=== PATIENT | female | born 1930 | race Caucasian/White ===

== ENCOUNTER 2016-09-03 13:41 | Emergency (ER) | payer MEDICARE ==
[2016-09-03 14:52] LABS: BASO # 0.1 x10^3/uL (0.0-0.2); BASO % 0 % (0-3); EOS % 1 % (0-3); HEMATOCRIT 39.3 % (36.0-47.0); HEMOGLOBIN 12.4 g/dL (12.0-15.5); LYMPH # 0.8 x10^3/uL (1.0-4.8); LYMPH % 6 % (24-48); MEAN CORPUSCULAR HEMOGLOBIN 32 pg (25-35); MEAN CORPUSCULAR HGB CONC 32 g/dL (31-37); MEAN CORPUSCULAR VOLUME 101 fL (79-100); MONO % 7 % (0-9); NEUT % 85 % (31-73); PLATELET COUNT 216 x10^3/uL (140-400); RED BLOOD COUNT 3.89 x10^6/uL (3.50-5.40); RED CELL DISTRIBUTION WIDTH 21.8 % (11.5-14.5); WHITE BLOOD COUNT 13.7 x10^3/uL (4.0-11.0)
[2016-09-03 14:56] LABS: BILIRUBIN,URINE NEGATIVE (NEG); GLUCOSE,URINE NEGATIVE (NEG); NITRITE,URINE NEGATIVE (NEG); UROBILINOGEN,URINE 0.2 mg/dL (0.2 mg/dL)
[2016-09-03 15:00] LABS: CALCIUM 8.9 mg/dL (8.5-10.1); CREATININE 0.9 mg/dL (0.6-1.0); GFR 59.7; POTASSIUM 3.1 mmol/L (3.5-5.1)
[2016-09-03 15:05] LABS: PROTEIN,URINE NEGATIVE (NEG-TRACE); RBC,URINE 0 /HPF (0-2)
[2016-09-03 15:06] LABS: BACTERIA,URINE MANY /HPF (0-FEW)
[2016-09-03 15:23] LABS: ANISOCYTOSIS MOD; PLT ESTIMATE ADEQUATE (ADEQUATE)
[2016-09-03] MEDS ORDERED: CEFTRIAXONE 1GM IVPB FOR OMNI 50 ML IV STA (16:21)
[2016-09-03] MEDS ORDERED: CEPH-263 PO (16:26)
--- NOTE | 2016-09-03 16:26 | PHYS DOC ---
Past Medical History Past Medical History: Anemia, Anxiety, Constipation, Dementia, GERD, Hypertension, Hypothyroid, TIA Additional Past Medical Histor: RESPIRATORY FAILURE ,DYSPHASIA Past Surgical History: No Surgical History Alcohol Use: None Drug Use: None Adult General Chief Complaint Chief Complaint: ALTERED MENTAL STATUS HPI HPI Patient is a 86 year old female who presents by EMS from nursing facility for evaluation of altered mental status. She also has had a couple episodes of watery diarrhea today. She makes no specific complaint while in the emergency department. Per discussion with Dr. Weber, [place] PCP, they were concerned about dehydration and the possibility of C. difficile infection. They have already collected a stool sample at the nursing facility. There is no report of vomiting or agitation. She has been taking medications as prescribed thus far as well as food and liquid intake. Review of Systems Review of Systems Unable to obtain review of systems secondary to clinical status Current Medications Current Medications Current Medications Medications (Trade) Dose Ordered Sig/Kathie Start Time Stop Time Status Last Admin Dose Admin Ceftriaxone Sodium (Rocephin 1gm Ivpb For Omni) 50 ml @ 100 mls/hr 1X STAT 09/03/16 16:21 09/03/16 16:50 DC 09/03/16 16:21 100 MLS/HR Allergies Allergies Allergies Coded Allergies Type Severity Reaction Last Updated Verified No Known Drug Allergies 09/03/16 No Physical Exam Physical Exam Constitutional: Well developed, well nourished, no acute distress, non-toxic appearance. [] HENT: Normocephalic, atraumatic, bilateral external ears normal, oropharynx moist, no oral exudates, nose normal. [] Eyes: PERRLA, EOMI. [] Neck: Normal range of motion, supple. [] Cardiovascular:Heart rate regular rhythm [] Lungs & Thorax: Bilateral breath sounds clear to auscultation [] Abdomen: Bowel sounds normal, soft, no tenderness. [] Skin: Warm, dry, no erythema, no rash. [] Back: No tenderness, no CVA tenderness. [] Extremities: No tenderness, ROM intact, no edema. [] Neurologic: Alert, normal motor function, normal sensory function, no focal deficits noted. [] Psychologic: Affect normal, judgement impaired by dementia, mood normal. [] Current Patient Data Vital Signs Vital Signs Date Time Temp Pulse Resp B/P Pulse Ox O2 Delivery O2 Flow Rate FiO2 09/03/16 17:10 88 24 101/64 90 Room Air 09/03/16 14:06 98.6 98.6 Lab Values Laboratory Tests Test 09/03/16 14:10 09/03/16 14:30 White Blood Count 13.7x10^3/uL (4.0-11.0) H Red Blood Count 3.89x10^6/uL (3.50-5.40) Hemoglobin 12.4g/dL (12.0-15.5) Hematocrit 39.3% (36.0-47.0) Mean Corpuscular Volume 101fL (79-100) H Mean Corpuscular Hemoglobin 32pg (25-35) Mean Corpuscular Hemoglobin Concent 32g/dL (31-37) Red Cell Distribution Width 21.8% (11.5-14.5) H Platelet Count 216x10^3/uL (140-400) Neutrophils (%) (Auto) 85% (31-73) H Lymphocytes (%) (Auto) 6% (24-48) L Monocytes (%) (Auto) 7% (0-9) Eosinophils (%) (Auto) 1% (0-3) Basophils (%) (Auto) 0% (0-3) Neutrophils # (Auto) 11.7x10^3uL (1.8-7.7) H Lymphocytes # (Auto) 0.8x10^3/uL (1.0-4.8) L Monocytes # (Auto) 1.0x10^3/uL (0.0-1.1) Eosinophils # (Auto) 0.1x10^3/uL (0.0-0.7) Basophils # (Auto) 0.1x10^3/uL (0.0-0.2) Segmented Neutrophils % 41% (35-66) Band Neutrophils % 47% (0-9) H Lymphocytes % 8% (24-48) L Monocytes % 4% (0-10) Platelet Estimate Adequate (ADEQUATE) Anisocytosis Mod Sodium Level 149mmol/L (136-145) H Potassium Level 3.1mmol/L (3.5-5.1) L Chloride Level 106mmol/L (98-107) Carbon Dioxide Level 29mmol/L (21-32) Anion Gap 14 (6-14) Blood Urea Nitrogen 21mg/dL (7-20) H Creatinine 0.9mg/dL (0.6-1.0) Estimated GFR (Cockcroft-Gault) 59.7 Glucose Level 133mg/dL (70-99) H Calcium Level 8.9mg/dL (8.5-10.1) Creatine Kinase 47U/L (26-192) Urine Collection Type U cath Urine Color [place] Urine Clarity Cloudy Urine pH 6.0 Urine Specific [place] 1.020 Urine Protein Negativemg/dL (NEG-TRACE) Urine Glucose (UA) Negativemg/dL (NEG) Urine Ketones (Stick) Negativemg/dL (NEG) Urine Blood Trace (NEG) Urine Nitrite Negative (NEG) Urine Bilirubin Negative (NEG) Urine Urobilinogen Dipstick 0.2mg/dL (0.2 mg/dL) Urine Leukocyte Esterase Large (NEG) Urine RBC 0/HPF (0-2) Urine WBC 11-20/HPF (0-4) Urine Transitional Epithelial Cells Few/LPF Urine Bacteria Many/HPF (0-FEW) Laboratory Tests 09/03/16 14:10 Laboratory Tests 09/03/16 14:10 Course & Med Decision Making Course & Med Decision Making Pertinent Labs and Imaging studies reviewed. (See chart for details) Workup is remarkable for urinary tract infection and leukocytosis. Discussed case with Dr. Weber, who agrees to continue outpatient treatment. She will be transferred reported back to nursing facility via EMS. Dragon Disclaimer Dragon Disclaimer This electronic medical record was generated, in whole or in part, using a voice recognition dictation system. Departure Departure Impression: Primary Impression: Acute cystitis without hematuria Disposition: 01 HOME, SELF-CARE Condition: STABLE Referrals: NO PCP (PCP) Patient Instructions: Urinary Tract Infection, [id number] Additional Instructions: Take Keflex as prescribed. Follow-up with your primary care doctor. Return for any concerns. Scripts Cephalexin (Keflex)250 Mg Capsule1 Cap PO TID #21 CAP Prov:Moises CARROLL MD 09/03/16 Moises CARROLL MD Sep 03, 2016 16:26
[2016-09-03 17:10] VITALS: BP 101/64
== END 2016-09-03 18:02 | disposition home or self-care (01) ==
LOC: ER 13:41
DX: N30.00 Acute cystitis without hematuria (principal); R41.82 Altered mental status, unspecified; F41.9 Anxiety disorder, unspecified; K59.00 Constipation, unspecified; F03.90 Unspecified dementia, unspecified severity, without behavioral disturbance, psychotic disturbance, mood disturbance, and anxiety; K21.9 Gastro-esophageal reflux disease without esophagitis; I10 Essential (primary) hypertension; E03.9 Hypothyroidism, unspecified; Z86.73 Personal history of transient ischemic attack (TIA), and cerebral infarction without residual deficits
CPT/HCPCS: 36415; 80048; 81001; 82550; 85007; 85027; 87086; 96365; 99284; J0690

== ENCOUNTER 2017-05-18 15:13 | Inpatient (IN) | payer MEDICARE ==
[~2017-05-18] VITALS: Ht 152.4 cm; Wt 51.3 kg
[~2017-05-18 15:13] MED LIST: CEPH-263 PO
[2017-05-18] MEDS ORDERED: IV NORMAL SALINE 1000ML BAG 1,000 ML IV ONE (15:30)
[2017-05-18] MEDS: fentaNYL PF VIAL 100 MCG/2 ML VIAL IV PRN ×3 (15:52→18:06)
--- NOTE | 2017-05-18 15:53 | EKG ---
[facility] [address] [place] [address] Test Date: 2017-05-18 Test Time: 15:19:31 Pat Name: ELO PETER Department: Room: Gender: F Tellers Supervisor: : [id number] Requested By: CRICKET FULLER Order Number: [id number] Reading MD: Tariq Shirley Measurements Intervals [place] Rate: 83 P: 30 AL: 184 QRS: -36 QRSD: 58 T: 3 QT: 362 QTc: 431 Interpretive Statements SINUS RHYTHM ABNORMAL LEFT AXIS DEVIATION LOW VOLTAGE QRS(T) CONTOUR ABNORMALITY CONSISTENT WITH ANTERIOR INFARCT AGE UNDETERMINED CONSIDER INFERIOR MYOCARDIAL DAMAGE Electronically Signed On 06-09-2017 16:08:13 CDT by Tariq Shirley
[2017-05-18 16:06] LABS: BASO % 0 % (0-3); EOS % 1 % (0-3); HEMATOCRIT 42.1 % (36.0-47.0); HEMOGLOBIN 13.4 g/dL (12.0-15.5); LYMPH % 9 % (24-48); MEAN CORPUSCULAR HEMOGLOBIN 33 pg (25-35); MEAN CORPUSCULAR HGB CONC 32 g/dL (31-37); MEAN CORPUSCULAR VOLUME 102 fL (79-100); MONO % 8 % (0-9); NEUT % 82 % (31-73); PLATELET COUNT 182 x10^3/uL (140-400); RED BLOOD COUNT 4.14 x10^6/uL (3.50-5.40); WHITE BLOOD COUNT 11.4 x10^3/uL (4.0-11.0)
[2017-05-18 16:08] LABS: BILIRUBIN,URINE NEGATIVE (NEG); GLUCOSE,URINE NEGATIVE (NEG); NITRITE,URINE NEGATIVE (NEG); PROTEIN,URINE NEGATIVE (NEG-TRACE); UROBILINOGEN,URINE 0.2 mg/dL (0.2 mg/dL)
[2017-05-18 16:13] LABS: CALCIUM 9.1 mg/dL (8.5-10.1); CREATININE 0.9 mg/dL (0.6-1.0); GFR 59.7; POTASSIUM 5.6 mmol/L (3.5-5.1)
[2017-05-18 16:21] LABS: ALBUMIN 3.7 g/dL (3.4-5.0); ALBUMIN/GLOBULIN RATIO 0.9 (1.0-1.7); TOTAL BILIRUBIN 0.4 mg/dL (0.2-1.0); TOTAL PROTEIN 7.7 g/dL (6.4-8.2)
[2017-05-18 16:31] LABS: BACTERIA,URINE MANY /HPF (0-FEW); RBC,URINE 0 /HPF (0-2); SQUAMOUS EPITHELIAL CELL,UR FEW /LPF; WBC,URINE TNTC /HPF (0-4)
--- NOTE | 2017-05-18 16:35 | PHYS DOC ---
Past Medical History Past Medical History: Anemia, Anxiety, Constipation, Dementia, GERD, Hypertension, Hypothyroid, TIA Additional Past Medical Histor: RESPIRATORY FAILURE ,DYSPHASIA Past Surgical History: No Surgical History, Other Additional Past Surgical Histo: unknown Alcohol Use: None Drug Use: None Adult General Chief Complaint Chief Complaint: MECHANICAL FALL HPI HPI Patient is a 86 year old female who presents with pain after a fall earlier this morning. Patient has history of dementia and is unable to give an account for what happened. Patient reportedly did not get seen directly after the fall, she developed pain over the next several hours. Patient is unable to localize her pain but appears to be having pain in her right hip.patient reportedly does not take any blood thinners. Review of Systems Review of Systems unable to obtain 2/2 to dementia Current Medications Current Medications Current Medications Medications (Trade) Dose Ordered Sig/Kathie Start Time Stop Time Status Last Admin Dose Admin Albuterol/ Ipratropium (Duoneb) 3 ml 1X ONCE 05/18/17 17:00 05/18/17 17:01 DC 05/18/17 16:56 3 ML Fentanyl Citrate (Fentanyl 2ml Vial) 25 mcg PRN Q15MIN PRN 05/18/17 15:45 05/18/17 18:06 DC 05/18/17 18:06 25 MCG Sodium Chloride 1,000 ml @ 1,000 mls/hr 1X ONCE 05/18/17 15:30 05/18/17 16:29 DC 05/18/17 15:53 1,000 MLS/HR Allergies Allergies Allergies Coded Allergies Type Severity Reaction Last Updated Verified No Known Drug Allergies 09/03/16 No Physical Exam Physical Exam Constitutional: Well developed, well nourished, elderly, demented, appears in no acute distress HENT: Normocephalic, atraumatic, bilateral external ears normal, oropharynx slightly dry, no oral exudates, nose normal. [] Eyes: PERRLA, EOMI, conjunctiva normal, no discharge. [] Neck: Normal range of motion, no tenderness, supple, no stridor. [] Cardiovascular:Heart rate regular with regular rhythm, no murmur [] Lungs & Thorax: Bilateral breath sounds clear to auscultation, no wheeze Abdomen: soft, no tenderness, no masses, no pulsatile masses. [] Skin: Warm, dry, no erythema, no rash. [] Back: severe kyphosis, no bony ttp, no stepoff appreciated Extremities: TTP R hip and pain with passive ROM, distal pulse intact, pelvis stable. Upper extremities nontender Neurologic: Alert but not oriented, normal motor function, normal sensory function, no focal deficits noted. [] Current Patient Data Vital Signs Vital Signs Date Time Temp Pulse Resp B/P (MAP) Pulse Ox O2 Delivery O2 Flow Rate FiO2 05/18/17 18:06 24 95 Nasal Cannula 3.0 05/18/17 18:00 76 152/76 (101) 05/18/17 15:15 98.1 98.1 Lab Values Laboratory Tests Test 05/18/17 15:43 05/18/17 15:57 05/18/17 17:52 White Blood Count 11.4 x10^3/uL (4.0-11.0) H Red Blood Count 4.14 x10^6/uL (3.50-5.40) Hemoglobin 13.4 g/dL (12.0-15.5) Hematocrit 42.1 % (36.0-47.0) Mean Corpuscular Volume 102 fL (79-100) H Mean Corpuscular Hemoglobin 33 pg (25-35) Mean Corpuscular Hemoglobin Concent 32 g/dL (31-37) Red Cell Distribution Width 20.0 % (11.5-14.5) H Platelet Count 182 x10^3/uL (140-400) Neutrophils (%) (Auto) 82 % (31-73) H Lymphocytes (%) (Auto) 9 % (24-48) L Monocytes (%) (Auto) 8 % (0-9) Eosinophils (%) (Auto) 1 % (0-3) Basophils (%) (Auto) 0 % (0-3) Neutrophils # (Auto) 9.4 x10^3uL (1.8-7.7) H Lymphocytes # (Auto) 1.0 x10^3/uL (1.0-4.8) Monocytes # (Auto) 0.9 x10^3/uL (0.0-1.1) Eosinophils # (Auto) 0.1 x10^3/uL (0.0-0.7) Basophils # (Auto) 0.0 x10^3/uL (0.0-0.2) Sodium Level 137 mmol/L (136-145) Potassium Level 5.6 mmol/L (3.5-5.1) H 5.0 mmol/L (3.5-5.1) Chloride Level 100 mmol/L (98-107) Carbon Dioxide Level 34 mmol/L (21-32) H Anion Gap 3 (6-14) L Blood Urea Nitrogen 32 mg/dL (7-20) H Creatinine 0.9 mg/dL (0.6-1.0) Estimated GFR (Cockcroft-Gault) 59.7 BUN/Creatinine Ratio 36 (6-20) H Glucose Level 118 mg/dL (70-99) H Calcium Level 9.1 mg/dL (8.5-10.1) Total Bilirubin 0.4 mg/dL (0.2-1.0) Aspartate Amino Transferase (AST) 30 U/L (15-37) Alanine Aminotransferase (ALT) 35 U/L (14-59) Alkaline Phosphatase 66 U/L (46-116) Total Protein 7.7 g/dL (6.4-8.2) Albumin 3.7 g/dL (3.4-5.0) Albumin/Globulin Ratio 0.9 (1.0-1.7) L Urine Collection Type Unknown Urine Color Yellow Urine Clarity Cloudy Urine pH 7.0 Urine Specific [place] 1.020 Urine Protein Negative mg/dL (NEG-TRACE) Urine Glucose (UA) Negative mg/dL (NEG) Urine Ketones (Stick) Negative mg/dL (NEG) Urine Blood Trace (NEG) Urine Nitrite Negative (NEG) Urine Bilirubin Negative (NEG) Urine Urobilinogen Dipstick 0.2 mg/dL (0.2 mg/dL) Urine Leukocyte Esterase Large (NEG) Urine RBC 0 /HPF (0-2) Urine WBC Tntc /HPF (0-4) Urine Squamous Epithelial Cells Few /LPF Urine Bacteria Many /HPF (0-FEW) Thyroid Stimulating Hormone (TSH) 27.916 uIU/mL (0.358-3.74) H Free Thyroxine 0.50 ng/dL (0.76-1.46) L Free Triiodothyronine (T3) pg/mL < 0.50 pg/mL (2.18-3.98) L Laboratory Tests 05/18/17 15:43 Laboratory Tests 05/18/17 15:43 05/18/17 17:52 EKG EKG []83 bpm, sinus, normal axis, normal intervals, no ST elevation or depression, nonischemic T waves, diffuse low voltage, interpreted by wa Radiology/Procedures Radiology/Procedures CT head: Impression: 1. Area of attenuation within the right frontal lobe likely infarct, age indeterminate likely subacute to chronic. Correlate with history of prior CVA. If concern for acute ischemic stroke is high, please consider MRI. 2. White matter changes secondary to chronic ischemic small vessel disease. 3. Small area of low attenuation adjacent right caudate nucleus likely lacunar Infarct, age indeterminate. 4. Linear lucency through the occipital bone may represent nondisplaced fracture or vascular channel. There is no scalp hematoma or intracranial acute bleed. CT cervical spine Indication: As above Comparison: Previous study from 07/17/2016 Findings: Increased cervical lordosis with diffuse osteopenia. There is compression deformity of the C7 vertebral body with patchy sclerosis without significant retropulsion the spinal canal. Stable loss of upper thoracic spine vertebral bodies. The facet joints are in normal anatomic alignment. The predental interval is preserved. No cervical adenopathy. Visualized lung bases are clear. Aortic arch calcifications noted. Bilateral carotid bulb calcifications. Prevertebral soft tissues are within normal limits. Impression: 1. New compression deformity of C7 vertebral body when compared to previous study from 07/17/2016 with no retropulsion spinal canal. 2. Stable multiple compression deformities of the upper thoracic spine. Diffuse osteopenia. 3. Lucency through the right aspect of the occipital bone may represent nondisplaced fracture or vascular channel. There are no scalp hematoma or intracranial acute bleed. CT pelvis: IMPRESSION: 1. Possible fractures of the bilateral pubic rami, age indeterminate, although evaluation is limited due to osteopenia. CT pelvis could be obtained for further evaluation is indicated. 2. Nonspecific periosteal reaction in the proximal third of the femoral diaphysis. 3. Moderate bilateral hip, bilateral SI joint, and pubic symphysis arthrosis. Course & Med Decision Making Course & Med Decision Making Pertinent Labs and Imaging studies reviewed. (See chart for details) Pt given IV fentanyl for pain control. CT's performed, reviewed and pt placed in cervical collar and consulted neurosurgery, talked with Anna by phone. Pt has multiple injuries, contacted Dr. Lei for admission. pt with poor prognosis considering the numerous injuries, age and dementia. We were able to get ahold of group home who stated they had performed XRays earlier in the day and pt has possible T & L spine fractures. This was discovered after pt transferred to floor and I updated DR. Lei. Dragon Disclaimer Dragon Disclaimer This electronic medical record was generated, in whole or in part, using a voice recognition dictation system. Departure Departure Impression: Primary Impression: Urinary tract infection Additional Impression: Cervical compression fracture Disposition: 09 ADMITTED INPATIENT Admitting Physician: Kaelyn Ruiz Condition: GUARDED Referrals: NO PCP (PCP) Problem Qualifiers CRICKET FULLER MD May 18, 2017 16:35
--- NOTE | 2017-05-18 16:48 | RAD ---
CT head Indication: Fall. Technique: CT head without IV contrast Comparison: None Findings: No pathologic extra-axial or intra-axial fluid collection. There is large area of low attenuation in the right frontal lobe extending to the cortex into the frontal horn of the lateral ventricle. There is mild diffuse cerebral volume loss with ex vacuo dilation of the ventricles. No acute intracranial bleed. The basal cisterns are within normal limits. No midline shift. No calvarial fractures. The paranasal sinuses and mastoid air cells are clear. Orbits are within normal limits. Mild bilateral cavernous carotid artery calcifications. 1.2 cm low attenuating focus adjacent to the right caudate nucleus likely lacunar infarct. Attenuation of the Periventricular and deep white matter noted. Linear lucencies seen through the right aspect of the occipital bone. Impression: 1. Area of attenuation within the right frontal lobe likely infarct, age indeterminate likely subacute to chronic. Correlate with history of prior CVA. If concern for acute ischemic stroke is high, please consider MRI. 2. White matter changes secondary to chronic ischemic small vessel disease. 3. Small area of low attenuation adjacent right caudate nucleus likely lacunar Infarct, age indeterminate. 4. Linear lucency through the occipital bone may represent nondisplaced fracture or vascular channel. There is no scalp hematoma or intracranial acute bleed. CT cervical spine Indication: As above Comparison: Previous study from 07/17/2016 Findings: Increased cervical lordosis with diffuse osteopenia. There is compression deformity of the C7 vertebral body with patchy sclerosis without significant retropulsion the spinal canal. Stable loss of upper thoracic spine vertebral bodies. The facet joints are in normal anatomic alignment. The predental interval is preserved. No cervical adenopathy. Visualized lung bases are clear. Aortic arch calcifications noted. Bilateral carotid bulb calcifications. Prevertebral soft tissues are within normal limits. Impression: 1. New compression deformity of C7 vertebral body when compared to previous study from 07/17/2016 with no retropulsion spinal canal. 2. Stable multiple compression deformities of the upper thoracic spine. Diffuse osteopenia. 3. Lucency through the right aspect of the occipital bone may represent nondisplaced fracture or vascular channel. There are no scalp hematoma or intracranial acute bleed. PQRS Compliance Statement: One or more of the following individualized dose reduction techniques were utilized for this examination: 1. Automated exposure control 2. Adjustment of the mA and/or kV according to patient size 3. Use of iterative reconstruction technique
[2017-05-18] MEDS ORDERED: IPRATRPIUM/ALBUTEROL 0.5/2.5MG 3 ML NEBU. NEB ONE (17:00)
[2017-05-18] MEDS ORDERED: KETOROLAC 15 MG/ML VIAL. IV PRN (18:30)
[2017-05-18] MEDS ORDERED: CALCIUM CARBONATE 500 MG TAB.CHEW PO PRN (18:30)
[2017-05-18] MEDS ORDERED: PROCHLORPERAZINE 10 MG/2 ML VIAL. IV PRN (18:30)
[2017-05-18] MEDS ORDERED: fentaNYL PF VIAL 100 MCG/2 ML VIAL IV PRN (18:30)
[2017-05-18] MEDS ORDERED: oxyCODONE IR 5 MG TABLET PO PRN (18:30)
[2017-05-18] MEDS ORDERED: ACETAMINOPHEN 325 MG TABLET. PO PRN (18:30)
[2017-05-18] MEDS ORDERED: IBUPROFEN 400 MG TABLET. PO PRN (18:30)
[2017-05-18] MEDS ORDERED: ONDANSETRON PF 4 MG/2 ML VIAL. IV PRN (18:30)
[2017-05-18] MEDS ORDERED: PROCHLORPERAZINE 25 MG SUPP.RECT. PR PRN (18:30)
--- NOTE | 2017-05-18 18:44 | PDOC1 ---
History and Physical Date of Admission Date of Admission DATE: 05/18/17 TIME: 18:28 Identification/Chief Complaint Chief Complaint fall in SNU Problems: Source Source: Caregiver, Chart review History of Present Illness History of Present Illness 86 y.o Female, SNU resident with no family at bedside, brought in by EMS via wheelchair bec of reported fall in SNU, NO details on how she fell, attempted to call [facility] tonight to no avail (will try again tmr), She seems to have very significant dementia, only able to tell me "katya"as her name (that ios not her name on file). Looking at some papers, her meds are for constipation , pain, depression, hypothyroidism, GERD, I did not find any DM, HTN, CAD or pulmo meds in her list, She is on dysphagia diet there (unknown type). She has a c collar.Labs remarkable for evidence I think of poor pO namely hyperkalemia with absence of any EKG changes, Metabolic alkalosis we see in contraction alkalosis states, and stebl compression deformities of spine and some abN on CT head trying to r.o acute fx head (occipital bone) Will hydrate, rpt labs, get heme onc input, PT,.OT, palliative to address goals of care, reach out to [facility] again in the morning, SERVICE MECHANIC to formally evaluate Scans show: 1. Area of attenuation within the right frontal lobe likely infarct, age indeterminate likely subacute to chronic. Correlate with history of prior CVA. If concern for acute ischemic stroke is high, please consider MRI. 2. White matter changes secondary to chronic ischemic small vessel disease. 3. Small area of low attenuation adjacent right caudate nucleus likely lacunar Infarct, age indeterminate. 4. Linear lucency through the occipital bone may represent nondisplaced fracture or vascular channel. There is no scalp hematoma or intracranial acute bleed. CT cervical spine Impression: 1. New compression deformity of C7 vertebral body when compared to previous study from 07/17/2016 with no retropulsion spinal canal. 2. Stable multiple compression deformities of the upper thoracic spine. Diffuse osteopenia. 3. Lucency through the right aspect of the occipital bone may represent nondisplaced fracture or vascular channel. There are no scalp hematoma or intracranial acute bleed. Past Medical History GI: Constipation Psych: Depression Musculoskeletal: Other (chrocni pain vs OA?) Past Surgical History Past Surgical History: Other (unknwon) Family History Family History: Family History Unknown Social History Smoke: No ALCOHOL: none Drugs: None Current Problem List Problem List Problems Medical Problems: (1) Cervical compression fracture Status: Acute (2) Urinary tract infection Status: Acute Problems: Current Medications Current Medications Current Medications Sodium Chloride 1,000 ml @ 1,000 mls/hr 1X ONCE IV Last administered on 15:53; Start 05/18/17 at 15:30; Stop 05/18/17 at 16:29; Status DC Fentanyl Citrate (Fentanyl 2ml Vial) 25 mcg PRN Q15MIN PRN IV PAIN Last administered on 05/18/17 18:06; Start 05/18/17 at 15:45; Stop 05/18/17 at 18:06 ; Status DC Albuterol/ Ipratropium (Duoneb) 3 ml 1X ONCE NEB Last administered on 16:56; Start 05/18/17 at 17:00; Stop 05/18/17 at 17:01; Status DC Ceftriaxone Sodium 50 ml @ 100 mls/hr 1X ONCE IV Last administered on 18:11; Start 05/18/17 at 18:30; Stop 05/18/17 at 18:59 Fentanyl Citrate (Fentanyl 2ml Vial) 25 mcg PRN Q1HR PRN IV PAIN; Start at 18:30; Stop 05/19/17 at 18:29 Active Scripts Active Keflex (Cephalexin) 250 Mg Capsule 1 Cap PO TID Allergies Allergies: Coded Allergies: No Known Drug Allergies (Unverified , 09/03/16) ROS Review of System demented, sigbnificant Physical Exam General: No acute distress, Other (does not answer to qs but is awake and not in distress) HEENT: Atraumatic, Other (minmal sub Q tissue) Lungs: Clear to auscultation Heart: S1S2 Cardiovascular: S1, S2 Breasts: Normal, Rt breast nml w/o mass, Lt breast nml w/o mass, Nipples normal Abdomen: Normal bowel sounds, Soft, No tenderness, No hepatosplenomegaly, No masses Rectal Exam: not examined Extremities: No clubbing, No cyanosis, No edema, Normal pulses, No tenderness/ swelling, Other (minimal subQ tissue) Skin: No rashes, No breakdown, No significant lesion Neuro: Normal gait, Normal speech, Strength at 5/5 X4 ext, Normal tone, Sensation intact, Cranial nerves 3-12 NL, Reflexes 2+ Psych/Mental Status: Mental status NL, Mood NL Vitals Vitals Vital Signs Date Time Temp Pulse Resp B/P (MAP) Pulse Ox O2 Delivery O2 Flow Rate FiO2 05/18/17 18:06 24 95 Nasal Cannula 3.0 05/18/17 16:23 80 159/83 (108) 05/18/17 15:15 98.1 98.1 Labs Labs Laboratory Tests Test 05/18/17 15:43 05/18/17 15:57 White Blood Count 11.4 x10^3/uL (4.0-11.0) Red Blood Count 4.14 x10^6/uL (3.50-5.40) Hemoglobin 13.4 g/dL (12.0-15.5) Hematocrit 42.1 % (36.0-47.0) Mean Corpuscular Volume 102 fL (79-100) Mean Corpuscular Hemoglobin 33 pg (25-35) Mean Corpuscular Hemoglobin Concent 32 g/dL (31-37) Red Cell Distribution Width 20.0 % (11.5-14.5) Platelet Count 182 x10^3/uL (140-400) Neutrophils (%) (Auto) 82 % (31-73) Lymphocytes (%) (Auto) 9 % (24-48) Monocytes (%) (Auto) 8 % (0-9) Eosinophils (%) (Auto) 1 % (0-3) Basophils (%) (Auto) 0 % (0-3) Neutrophils # (Auto) 9.4 x10^3uL (1.8-7.7) Lymphocytes # (Auto) 1.0 x10^3/uL (1.0-4.8) Monocytes # (Auto) 0.9 x10^3/uL (0.0-1.1) Eosinophils # (Auto) 0.1 x10^3/uL (0.0-0.7) Basophils # (Auto) 0.0 x10^3/uL (0.0-0.2) Sodium Level 137 mmol/L (136-145) Potassium Level 5.6 mmol/L (3.5-5.1) Chloride Level 100 mmol/L (98-107) Carbon Dioxide Level 34 mmol/L (21-32) Anion Gap 3 (6-14) Blood Urea Nitrogen 32 mg/dL (7-20) Creatinine 0.9 mg/dL (0.6-1.0) Estimated GFR (Cockcroft-Gault) 59.7 BUN/Creatinine Ratio 36 (6-20) Glucose Level 118 mg/dL (70-99) Calcium Level 9.1 mg/dL (8.5-10.1) Total Bilirubin 0.4 mg/dL (0.2-1.0) Aspartate Amino Transf (AST/SGOT) 30 U/L (15-37) Alanine Aminotransferase (ALT/SGPT) 35 U/L (14-59) Alkaline Phosphatase 66 U/L (46-116) Total Protein 7.7 g/dL (6.4-8.2) Albumin 3.7 g/dL (3.4-5.0) Albumin/Globulin Ratio 0.9 (1.0-1.7) Urine Collection Type Unknown Urine Color Yellow Urine Clarity Cloudy Urine pH 7.0 Urine Specific Placedo 1.020 Urine Protein Negative mg/dL (NEG-TRACE) Urine Glucose (UA) Negative mg/dL (NEG) Urine Ketones (Stick) Negative mg/dL (NEG) Urine Blood Trace (NEG) Urine Nitrite Negative (NEG) Urine Bilirubin Negative (NEG) Urine Urobilinogen Dipstick 0.2 mg/dL (0.2 mg/dL) Urine Leukocyte Esterase Large (NEG) Urine RBC 0 /HPF (0-2) Urine WBC Tntc /HPF (0-4) Urine Squamous Epithelial Cells Few /LPF Urine Bacteria Many /HPF (0-FEW) Laboratory Tests Test 05/18/17 15:43 05/18/17 15:57 White Blood Count 11.4 x10^3/uL (4.0-11.0) Red Blood Count 4.14 x10^6/uL (3.50-5.40) Hemoglobin 13.4 g/dL (12.0-15.5) Hematocrit 42.1 % (36.0-47.0) Mean Corpuscular Volume 102 fL (79-100) Mean Corpuscular Hemoglobin 33 pg (25-35) Mean Corpuscular Hemoglobin Concent 32 g/dL (31-37) Red Cell Distribution Width 20.0 % (11.5-14.5) Platelet Count 182 x10^3/uL (140-400) Neutrophils (%) (Auto) 82 % (31-73) Lymphocytes (%) (Auto) 9 % (24-48) Monocytes (%) (Auto) 8 % (0-9) Eosinophils (%) (Auto) 1 % (0-3) Basophils (%) (Auto) 0 % (0-3) Neutrophils # (Auto) 9.4 x10^3uL (1.8-7.7) Lymphocytes # (Auto) 1.0 x10^3/uL (1.0-4.8) Monocytes # (Auto) 0.9 x10^3/uL (0.0-1.1) Eosinophils # (Auto) 0.1 x10^3/uL (0.0-0.7) Basophils # (Auto) 0.0 x10^3/uL (0.0-0.2) Sodium Level 137 mmol/L (136-145) Potassium Level 5.6 mmol/L (3.5-5.1) Chloride Level 100 mmol/L (98-107) Carbon Dioxide Level 34 mmol/L (21-32) Anion Gap 3 (6-14) Blood Urea Nitrogen 32 mg/dL (7-20) Creatinine 0.9 mg/dL (0.6-1.0) Estimated GFR (Cockcroft-Gault) 59.7 BUN/Creatinine Ratio 36 (6-20) Glucose Level 118 mg/dL (70-99) Calcium Level 9.1 mg/dL (8.5-10.1) Total Bilirubin 0.4 mg/dL (0.2-1.0) Aspartate Amino Transf (AST/SGOT) 30 U/L (15-37) Alanine Aminotransferase (ALT/SGPT) 35 U/L (14-59) Alkaline Phosphatase 66 U/L (46-116) Total Protein 7.7 g/dL (6.4-8.2) Albumin 3.7 g/dL (3.4-5.0) Albumin/Globulin Ratio 0.9 (1.0-1.7) Urine Collection Type Unknown Urine Color Yellow Urine Clarity Cloudy Urine pH 7.0 Urine Specific Placedo 1.020 Urine Protein Negative mg/dL (NEG-TRACE) Urine Glucose (UA) Negative mg/dL (NEG) Urine Ketones (Stick) Negative mg/dL (NEG) Urine Blood Trace (NEG) Urine Nitrite Negative (NEG) Urine Bilirubin Negative (NEG) Urine Urobilinogen Dipstick 0.2 mg/dL (0.2 mg/dL) Urine Leukocyte Esterase Large (NEG) Urine RBC 0 /HPF (0-2) Urine WBC Tntc /HPF (0-4) Urine Squamous Epithelial Cells Few /LPF Urine Bacteria Many /HPF (0-FEW) VTE Prophylaxis Ordered VTE Prophylaxis Devices: Yes VTE Pharmacological Prophylaxi: Yes Assessment/Plan Assessment/Plan 1. FAll in SNU 2. Possibe new C7 fx 3. Stable multiple compression fx thoracic spine 4. Advanced dementia 5, DYsphagia on dysphagia diet 6. Geriatric, high fall risk, high asp risk 7. 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, but BMI 21 8. HYpothryodism on synthroid 9 CHronic constpation 10. OA vs chronic pain - on narcs in SNU 11. Hyperkalemia likely of dehydration 12. COntraction alkalosis 13. Low AGAP PALn: WOuld admit 2MN IVF hydrate - hyperkalemia should get better Check labs in AM Consult neurosx re possible C 7 fx - given dec dec mobility, advanced dementia - NO sx, BUt still has c collar - will get their clearance when to dc, in MEANTIME, maintain c collar PAlliative consult to address code status and goals of acre No code status avail to us from SNU corporate communications intern eval PT.OT once neurosx cleared Nutrition consult for PCM Ok to cont home meds when passes bedside swallow eval Dvt ppx Control pain, lidoderm patch prn Seen at ER dw ER staff TUAN BAIG MD May 18, 2017 18:44
[2017-05-18] MEDS ORDERED: IV 1/2 NORMAL SALINE 1,000 ML IV ONE (19:00)
--- NOTE | 2017-05-18 19:02 | RAD ---
CT pelvis without contrast HISTORY: Pain status post fall Axial helical images of the pelvis was obtained without contrast and axial coronal and sagittal reconstruction was performed. FINDINGS: There is gross osteopenia which limits sensitivity for possible nondisplaced fractures. There are fractures through the sacrum bilaterally with some sclerotic changes. There is fracture lines through the right iliac. There are old fractures of the superior inferior pubic rami bilaterally however, there are also acute fractures of the inferior and superior pubic rami on the right as well as the anterior column of the right hip. There is mild to moderate loss of stature of the L4 and L5 vertebral bodies. IMPRESSION: 1. Bilateral fractures the sacral nilton are of uncertain age and could be subacute insufficiency fractures. 2. Acute minimally displaced comminuted fracture of the right iliac. 3. Acute fractures of the inferior and superior pubic rami on the right including the anterior column of the right hip. 4. Old fractures of the superior and inferior pubic rami bilaterally. 5. L4 and L5 vertebral body compression fractures of uncertain age. Electronically signed by: Logan Ramos III, MD (05/18/2017 6:58 PM) [facility]
[2017-05-18] MEDS: SENNOSIDES/DOCUSATE 8.6/50MG TABLET. PO SCH (21:00)
[2017-05-18] MEDS: ENOXAPARIN 40 MG/0.4 ML SYRINGE. SQ SCH (23:07)
[2017-05-19] MEDS ORDERED: DIVA125C3 PO (02:39)
[2017-05-19] MEDS ORDERED: IPRA3AMP NEB (02:39)
[2017-05-19] MEDS ORDERED: FERR-26 PO (02:39)
[2017-05-19] MEDS ORDERED: OMEP20TA8 PO (02:39)
[2017-05-19] MEDS ORDERED: MELA3TAB2 PO (02:39)
[2017-05-19] MEDS ORDERED: LEVO112T4 PO (02:39)
[2017-05-19] MEDS ORDERED: POTASSIUM CHLO10 MEQ PO (02:39)
[2017-05-19] MEDS ORDERED: QUET25TA5 PO (02:43)
[2017-05-19] MEDS ORDERED: MIRT15TA PO (02:43)
[2017-05-19 03:35] VITALS: BP 124/78
[2017-05-19 06:14] LABS: BASO % 1 % (0-3); EOS % 3 % (0-3); HEMATOCRIT 37.4 % (36.0-47.0); HEMOGLOBIN 12.6 g/dL (12.0-15.5); LYMPH # 1.2 x10^3/uL (1.0-4.8); LYMPH % 18 % (24-48); MEAN CORPUSCULAR HEMOGLOBIN 34 pg (25-35); MEAN CORPUSCULAR HGB CONC 34 g/dL (31-37); MEAN CORPUSCULAR VOLUME 100 fL (79-100); MONO % 12 % (0-9); NEUT % 68 % (31-73); PLATELET COUNT 152 x10^3/uL (140-400); RED BLOOD COUNT 3.75 x10^6/uL (3.50-5.40); WHITE BLOOD COUNT 6.9 x10^3/uL (4.0-11.0)
[2017-05-19 06:28] LABS: ALBUMIN 3.1 g/dL (3.4-5.0); ALBUMIN/GLOBULIN RATIO 0.9 (1.0-1.7); CALCIUM 8.7 mg/dL (8.5-10.1); CREATININE 0.6 mg/dL (0.6-1.0); GFR 95.2; MAGNESIUM 2.1 mg/dL (1.8-2.4); PHOSPHORUS 3.4 mg/dL (2.6-4.7); POTASSIUM 4.3 mmol/L (3.5-5.1); TOTAL BILIRUBIN 0.7 mg/dL (0.2-1.0); TOTAL PROTEIN 6.5 g/dL (6.4-8.2)
[2017-05-19 07:00] VITALS: BP 129/76
--- NOTE | 2017-05-19 08:02 | RAD ---
PORTABLE CHEST 1V Clinical Indication: fall, tachypnea Comparison: None. Findings: Low lung volume. Patchy bilateral heterogenous air space opacities. Pulmonary vascular indistinctness. Small bilateral pleural effusions. No pneumothorax. Mild cardiomegaly. Widening of the superior mediastinum. Atherosclerotic and tortuous thoracic aorta. No acute osseous abnormality. IMPRESSION: 1. Patchy bilateral heterogenous air space opacities may relate to pulmonary edema or an infectious process. Recommend continued radiographic follow-up to resolution. 2. Small bilateral pleural effusions. 3. Mild cardiomegaly. 4. Widening of the superior mediastinum. This could be accentuated to patient rotation and portable technique. PA and lateral chest radiograph with better inspiration could be obtained. If there is any concern for vascular injury, recommend CTA chest.
--- NOTE | 2017-05-19 08:15 | RAD ---
HIP RIGHT 2V WITH PELVIS Clinical Indication: fall, tachypnea Comparison: None. Findings: Possible fractures of the bilateral pubic rami, although evaluation is limited due to osteopenia. Nonspecific periosteal reaction in the proximal third of the femoral diaphysis. Moderate bilateral hip, bilateral SI joint, and pubic symphysis arthrosis. No significant soft tissue abnormality. IMPRESSION: 1. Possible fractures of the bilateral pubic rami, age indeterminate, although evaluation is limited due to osteopenia. CT pelvis could be obtained for further evaluation is indicated. 2. Nonspecific periosteal reaction in the proximal third of the femoral diaphysis. 3. Moderate bilateral hip, bilateral SI joint, and pubic symphysis arthrosis.
[2017-05-19] MEDS: SENNOSIDES/DOCUSATE 8.6/50MG TABLET. PO SCH ×2 (09:00→20:37)
[2017-05-19] MEDS: LIDOCAINE (700MG/PATCH) PATCH. TD SCH (09:00)
[2017-05-19 10:11] LABS: ANISOCYTOSIS SLIGHT; PLT ESTIMATE ADEQUATE (ADEQUATE); POIKILOCYTOSIS PRESENT
[2017-05-19 11:00] VITALS: BP 143/82
--- NOTE | 2017-05-19 11:04 | PDOC2 ---
PALLIATIVE CARE Palliative Care Note Palliative Care Consult requested by to address goals of care. Diagnosis: Cervical Compression Fracture post fall at the shelter; UTI Patient alert, restless at times. Recently medicated with Toradol. Code Status: Full Code. Spoke with son Ino. Attempted to reach Ric ([phone]) message to return call. DPOA. Spoke with Derrek GARCIA at [facility]. Confirmed code status at shelter. Will fax AD document if available. Will continue to try to reach DPOA Ric to arrange family meeting to discuss goals of care. [id number] Attempted to reach Ric DPOA. No answer. JIM CROW May 19, 2017 11:04
[2017-05-19] MEDS: MORPHINE SULFATE 4 MG/ML DISP.SYRIN. IV PRN ×3 (11:39→21:31)
[2017-05-19] MEDS ORDERED: hydrALAZINE 20 MG/ML VIAL. IVP PRN (11:45)
[2017-05-19] MEDS: FERROUS SULFATE 325 MG TABLET. PO SCH (12:13)
[2017-05-19] MEDS: PANTOPRAZOLE 40 MG TABLET.DR. PO SCH (12:13)
[2017-05-19] MEDS: DIVALPROEX SPRINKLES 125 MG CAPSULE. PO SCH ×2 (12:13→20:37)
[2017-05-19] MEDS: IPRATRPIUM/ALBUTEROL 0.5/2.5MG 3 ML NEBU. NEB SCH ×3 (13:09→19:24)
[2017-05-19] MEDS: IV NORMAL SALINE 1000ML BAG 1,000 ML IV SCH (13:15)
--- NOTE | 2017-05-19 14:34 | PDOC ---
PROGRESS NOTES Chief Complaint Chief Complaint FAll in SNU traumatic acute new C7 fx multiple chronic pelvic fx and new pelvic fx from all Stable multiple compression fx thoracic spine and lumbar spine Advanced dementia DYsphagia on mechanical soft diet Geriatric, high fall risk, high asp risk . 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 - on narcs in SNU Hyperkalemia likely of dehydration plan: neurosx, ortho consult pending on neck collar cont home meds cont synthroid,no dose increased yet PAT consult for dnr and goal of care swallow eval, now on dysphagia 2 diet dvt ppx low po intake, low IVF for now check b12 History of Present Illness History of Present Illness ROS: no fever, chills, sob, or chest pain pt awake , alert, aaox0, not know her last name, place or date not know why she is in hosp say yes when i told her that she fell got angry when i asked her questions TSH very high with low t4, doubt takes meds in SNF Vitals Vitals Vital Signs Date Time Temp Pulse Resp B/P (MAP) Pulse Ox O2 Delivery O2 Flow Rate FiO2 05/19/17 13:10 97 Nasal Cannula 3.0 05/19/17 11:00 98.0 60 16 143/82 (102) 98.0 Physical Exam Physical Exam aox0, neck collar General: Alert, No acute distress, Other (does not answer to qs but is awake and not in distress) Heart: Regular rate, Normal S1, Normal S2 Lungs: Clear Abdomen: Normal bowel sounds, Soft, No tenderness, No hepatosplenomegaly, No masses Extremities: No clubbing, No cyanosis, No edema, Normal pulses, No tenderness/ swelling, Other (minimal subQ tissue) Skin: No rashes, No breakdown, No significant lesion Labs LABS Laboratory Tests Test 05/18/17 15:43 05/18/17 15:57 05/18/17 17:52 05/19/17 05:10 White Blood Count 11.4 x10^3/uL (4.0-11.0) 6.9 x10^3/uL (4.0-11.0) Red Blood Count 4.14 x10^6/uL (3.50-5.40) 3.75 x10^6/uL (3.50-5.40) Hemoglobin 13.4 g/dL (12.0-15.5) 12.6 g/dL (12.0-15.5) Hematocrit 42.1 % (36.0-47.0) 37.4 % (36.0-47.0) Mean Corpuscular Volume 102 fL (79-100) 100 fL (79-100) Mean Corpuscular Hemoglobin 33 pg (25-35) 34 pg (25-35) Mean Corpuscular Hemoglobin Concent 32 g/dL (31-37) 34 g/dL (31-37) Red Cell Distribution Width 20.0 % (11.5-14.5) 20.0 % (11.5-14.5) Platelet Count 182 x10^3/uL (140-400) 152 x10^3/uL (140-400) Neutrophils (%) (Auto) 82 % (31-73) 68 % (31-73) Lymphocytes (%) (Auto) 9 % (24-48) 18 % (24-48) Monocytes (%) (Auto) 8 % (0-9) 12 % (0-9) Eosinophils (%) (Auto) 1 % (0-3) 3 % (0-3) Basophils (%) (Auto) 0 % (0-3) 1 % (0-3) Neutrophils # (Auto) 9.4 x10^3uL (1.8-7.7) 4.7 x10^3uL (1.8-7.7) Lymphocytes # (Auto) 1.0 x10^3/uL (1.0-4.8) 1.2 x10^3/uL (1.0-4.8) Monocytes # (Auto) 0.9 x10^3/uL (0.0-1.1) 0.8 x10^3/uL (0.0-1.1) Eosinophils # (Auto) 0.1 x10^3/uL (0.0-0.7) 0.2 x10^3/uL (0.0-0.7) Basophils # (Auto) 0.0 x10^3/uL (0.0-0.2) 0.0 x10^3/uL (0.0-0.2) Sodium Level 137 mmol/L (136-145) 139 mmol/L (136-145) Potassium Level 5.6 mmol/L (3.5-5.1) 5.0 mmol/L (3.5-5.1) 4.3 mmol/L (3.5-5.1) Chloride Level 100 mmol/L (98-107) 103 mmol/L (98-107) Carbon Dioxide Level 34 mmol/L (21-32) 32 mmol/L (21-32) Anion Gap 3 (6-14) 4 (6-14) Blood Urea Nitrogen 32 mg/dL (7-20) 21 mg/dL (7-20) Creatinine 0.9 mg/dL (0.6-1.0) 0.6 mg/dL (0.6-1.0) Estimated GFR (Cockcroft-Gault) 59.7 95.2 BUN/Creatinine Ratio 36 (6-20) 35 (6-20) Glucose Level 118 mg/dL (70-99) 84 mg/dL (70-99) Calcium Level 9.1 mg/dL (8.5-10.1) 8.7 mg/dL (8.5-10.1) Total Bilirubin 0.4 mg/dL (0.2-1.0) 0.7 mg/dL (0.2-1.0) Aspartate Amino Transf (AST/SGOT) 30 U/L (15-37) 20 U/L (15-37) Alanine Aminotransferase (ALT/SGPT) 35 U/L (14-59) 23 U/L (14-59) Alkaline Phosphatase 66 U/L (46-116) 43 U/L (46-116) Total Protein 7.7 g/dL (6.4-8.2) 6.5 g/dL (6.4-8.2) Albumin 3.7 g/dL (3.4-5.0) 3.1 g/dL (3.4-5.0) Albumin/Globulin Ratio 0.9 (1.0-1.7) 0.9 (1.0-1.7) Urine Collection Type Unknown Urine Color Yellow Urine Clarity Cloudy Urine pH 7.0 Urine Specific [place] 1.020 Urine Protein Negative mg/dL (NEG-TRACE) Urine Glucose (UA) Negative mg/dL (NEG) Urine Ketones (Stick) Negative mg/dL (NEG) Urine Blood Trace (NEG) Urine Nitrite Negative (NEG) Urine Bilirubin Negative (NEG) Urine Urobilinogen Dipstick 0.2 mg/dL (0.2 mg/dL) Urine Leukocyte Esterase Large (NEG) Urine RBC 0 /HPF (0-2) Urine WBC Tntc /HPF (0-4) Urine Squamous Epithelial Cells Few /LPF Urine Bacteria Many /HPF (0-FEW) Thyroid Stimulating Hormone (TSH) 27.916 uIU/mL (0.358-3.74) Free Thyroxine 0.50 ng/dL (0.76-1.46) Free Triiodothyronine (T3) pg/mL < 0.50 pg/mL (2.18-3.98) Platelet Estimate Adequate (ADEQUATE) Large Platelets Few Poikilocytosis Present Anisocytosis Slight Macrocytosis Present Phosphorus Level 3.4 mg/dL (2.6-4.7) Magnesium Level 2.1 mg/dL (1.8-2.4) Assessment and Plan Assessmemt and Plan Problems Medical Problems: (1) Cervical compression fracture Status: Acute (2) Urinary tract infection Status: Acute Problems: Comment Review of Relevant I have reviewed the following items tavon (where applicable) has been applied. Labs Laboratory Tests Test 05/18/17 15:43 05/18/17 15:57 05/18/17 17:52 05/19/17 05:10 White Blood Count 11.4 x10^3/uL (4.0-11.0) 6.9 x10^3/uL (4.0-11.0) Red Blood Count 4.14 x10^6/uL (3.50-5.40) 3.75 x10^6/uL (3.50-5.40) Hemoglobin 13.4 g/dL (12.0-15.5) 12.6 g/dL (12.0-15.5) Hematocrit 42.1 % (36.0-47.0) 37.4 % (36.0-47.0) Mean Corpuscular Volume 102 fL (79-100) 100 fL (79-100) Mean Corpuscular Hemoglobin 33 pg (25-35) 34 pg (25-35) Mean Corpuscular Hemoglobin Concent 32 g/dL (31-37) 34 g/dL (31-37) Red Cell Distribution Width 20.0 % (11.5-14.5) 20.0 % (11.5-14.5) Platelet Count 182 x10^3/uL (140-400) 152 x10^3/uL (140-400) Neutrophils (%) (Auto) 82 % (31-73) 68 % (31-73) Lymphocytes (%) (Auto) 9 % (24-48) 18 % (24-48) Monocytes (%) (Auto) 8 % (0-9) 12 % (0-9) Eosinophils (%) (Auto) 1 % (0-3) 3 % (0-3) Basophils (%) (Auto) 0 % (0-3) 1 % (0-3) Neutrophils # (Auto) 9.4 x10^3uL (1.8-7.7) 4.7 x10^3uL (1.8-7.7) Lymphocytes # (Auto) 1.0 x10^3/uL (1.0-4.8) 1.2 x10^3/uL (1.0-4.8) Monocytes # (Auto) 0.9 x10^3/uL (0.0-1.1) 0.8 x10^3/uL (0.0-1.1) Eosinophils # (Auto) 0.1 x10^3/uL (0.0-0.7) 0.2 x10^3/uL (0.0-0.7) Basophils # (Auto) 0.0 x10^3/uL (0.0-0.2) 0.0 x10^3/uL (0.0-0.2) Sodium Level 137 mmol/L (136-145) 139 mmol/L (136-145) Potassium Level 5.6 mmol/L (3.5-5.1) 5.0 mmol/L (3.5-5.1) 4.3 mmol/L (3.5-5.1) Chloride Level 100 mmol/L (98-107) 103 mmol/L (98-107) Carbon Dioxide Level 34 mmol/L (21-32) 32 mmol/L (21-32) Anion Gap 3 (6-14) 4 (6-14) Blood Urea Nitrogen 32 mg/dL (7-20) 21 mg/dL (7-20) Creatinine 0.9 mg/dL (0.6-1.0) 0.6 mg/dL (0.6-1.0) Estimated GFR (Cockcroft-Gault) 59.7 95.2 BUN/Creatinine Ratio 36 (6-20) 35 (6-20) Glucose Level 118 mg/dL (70-99) 84 mg/dL (70-99) Calcium Level 9.1 mg/dL (8.5-10.1) 8.7 mg/dL (8.5-10.1) Total Bilirubin 0.4 mg/dL (0.2-1.0) 0.7 mg/dL (0.2-1.0) Aspartate Amino Transf (AST/SGOT) 30 U/L (15-37) 20 U/L (15-37) Alanine Aminotransferase (ALT/SGPT) 35 U/L (14-59) 23 U/L (14-59) Alkaline Phosphatase 66 U/L (46-116) 43 U/L (46-116) Total Protein 7.7 g/dL (6.4-8.2) 6.5 g/dL (6.4-8.2) Albumin 3.7 g/dL (3.4-5.0) 3.1 g/dL (3.4-5.0) Albumin/Globulin Ratio 0.9 (1.0-1.7) 0.9 (1.0-1.7) Urine Collection Type Unknown Urine Color Yellow Urine Clarity Cloudy Urine pH 7.0 Urine Specific [place] 1.020 Urine Protein Negative mg/dL (NEG-TRACE) Urine Glucose (UA) Negative mg/dL (NEG) Urine Ketones (Stick) Negative mg/dL (NEG) Urine Blood Trace (NEG) Urine Nitrite Negative (NEG) Urine Bilirubin Negative (NEG) Urine Urobilinogen Dipstick 0.2 mg/dL (0.2 mg/dL) Urine Leukocyte Esterase Large (NEG) Urine RBC 0 /HPF (0-2) Urine WBC Tntc /HPF (0-4) Urine Squamous Epithelial Cells Few /LPF Urine Bacteria Many /HPF (0-FEW) Thyroid Stimulating Hormone (TSH) 27.916 uIU/mL (0.358-3.74) Free Thyroxine 0.50 ng/dL (0.76-1.46) Free Triiodothyronine (T3) pg/mL < 0.50 pg/mL (2.18-3.98) Platelet Estimate Adequate (ADEQUATE) Large Platelets Few Poikilocytosis Present Anisocytosis Slight Macrocytosis Present Phosphorus Level 3.4 mg/dL (2.6-4.7) Magnesium Level 2.1 mg/dL (1.8-2.4) Laboratory Tests Test 05/18/17 15:43 05/18/17 15:57 05/18/17 17:52 05/19/17 05:10 White Blood Count 11.4 x10^3/uL (4.0-11.0) 6.9 x10^3/uL (4.0-11.0) Red Blood Count 4.14 x10^6/uL (3.50-5.40) 3.75 x10^6/uL (3.50-5.40) Hemoglobin 13.4 g/dL (12.0-15.5) 12.6 g/dL (12.0-15.5) Hematocrit 42.1 % (36.0-47.0) 37.4 % (36.0-47.0) Mean Corpuscular Volume 102 fL (79-100) 100 fL (79-100) Mean Corpuscular Hemoglobin 33 pg (25-35) 34 pg (25-35) Mean Corpuscular Hemoglobin Concent 32 g/dL (31-37) 34 g/dL (31-37) Red Cell Distribution Width 20.0 % (11.5-14.5) 20.0 % (11.5-14.5) Platelet Count 182 x10^3/uL (140-400) 152 x10^3/uL (140-400) Neutrophils (%) (Auto) 82 % (31-73) 68 % (31-73) Lymphocytes (%) (Auto) 9 % (24-48) 18 % (24-48) Monocytes (%) (Auto) 8 % (0-9) 12 % (0-9) Eosinophils (%) (Auto) 1 % (0-3) 3 % (0-3) Basophils (%) (Auto) 0 % (0-3) 1 % (0-3) Neutrophils # (Auto) 9.4 x10^3uL (1.8-7.7) 4.7 x10^3uL (1.8-7.7) Lymphocytes # (Auto) 1.0 x10^3/uL (1.0-4.8) 1.2 x10^3/uL (1.0-4.8) Monocytes # (Auto) 0.9 x10^3/uL (0.0-1.1) 0.8 x10^3/uL (0.0-1.1) Eosinophils # (Auto) 0.1 x10^3/uL (0.0-0.7) 0.2 x10^3/uL (0.0-0.7) Basophils # (Auto) 0.0 x10^3/uL (0.0-0.2) 0.0 x10^3/uL (0.0-0.2) Sodium Level 137 mmol/L (136-145) 139 mmol/L (136-145) Potassium Level 5.6 mmol/L (3.5-5.1) 5.0 mmol/L (3.5-5.1) 4.3 mmol/L (3.5-5.1) Chloride Level 100 mmol/L (98-107) 103 mmol/L (98-107) Carbon Dioxide Level 34 mmol/L (21-32) 32 mmol/L (21-32) Anion Gap 3 (6-14) 4 (6-14) Blood Urea Nitrogen 32 mg/dL (7-20) 21 mg/dL (7-20) Creatinine 0.9 mg/dL (0.6-1.0) 0.6 mg/dL (0.6-1.0) Estimated GFR (Cockcroft-Gault) 59.7 95.2 BUN/Creatinine Ratio 36 (6-20) 35 (6-20) Glucose Level 118 mg/dL (70-99) 84 mg/dL (70-99) Calcium Level 9.1 mg/dL (8.5-10.1) 8.7 mg/dL (8.5-10.1) Total Bilirubin 0.4 mg/dL (0.2-1.0) 0.7 mg/dL (0.2-1.0) Aspartate Amino Transf (AST/SGOT) 30 U/L (15-37) 20 U/L (15-37) Alanine Aminotransferase (ALT/SGPT) 35 U/L (14-59) 23 U/L (14-59) Alkaline Phosphatase 66 U/L (46-116) 43 U/L (46-116) Total Protein 7.7 g/dL (6.4-8.2) 6.5 g/dL (6.4-8.2) Albumin 3.7 g/dL (3.4-5.0) 3.1 g/dL (3.4-5.0) Albumin/Globulin Ratio 0.9 (1.0-1.7) 0.9 (1.0-1.7) Urine Collection Type Unknown Urine Color Yellow Urine Clarity Cloudy Urine pH 7.0 Urine Specific [place] 1.020 Urine Protein Negative mg/dL (NEG-TRACE) Urine Glucose (UA) Negative mg/dL (NEG) Urine Ketones (Stick) Negative mg/dL (NEG) Urine Blood Trace (NEG) Urine Nitrite Negative (NEG) Urine Bilirubin Negative (NEG) Urine Urobilinogen Dipstick 0.2 mg/dL (0.2 mg/dL) Urine Leukocyte Esterase Large (NEG) Urine RBC 0 /HPF (0-2) Urine WBC Tntc /HPF (0-4) Urine Squamous Epithelial Cells Few /LPF Urine Bacteria Many /HPF (0-FEW) Thyroid Stimulating Hormone (TSH) 27.916 uIU/mL (0.358-3.74) Free Thyroxine 0.50 ng/dL (0.76-1.46) Free Triiodothyronine (T3) pg/mL < 0.50 pg/mL (2.18-3.98) Platelet Estimate Adequate (ADEQUATE) Large Platelets Few Poikilocytosis Present Anisocytosis Slight Macrocytosis Present Phosphorus Level 3.4 mg/dL (2.6-4.7) Magnesium Level 2.1 mg/dL (1.8-2.4) Medications Current Medications Sodium Chloride 1,000 ml @ 1,000 mls/hr 1X ONCE IV Last administered on 15:53; Start 05/18/17 at 15:30; Stop 05/18/17 at 16:29; Status DC Fentanyl Citrate (Fentanyl 2ml Vial) 25 mcg PRN Q15MIN PRN IV PAIN Last administered on 05/18/17 18:06; Start 05/18/17 at 15:45; Stop 05/18/17 at 18:06 ; Status DC Albuterol/ Ipratropium (Duoneb) 3 ml 1X ONCE NEB Last administered on 16:56; Start 05/18/17 at 17:00; Stop 05/18/17 at 17:01; Status DC Ceftriaxone Sodium 50 ml @ 100 mls/hr 1X ONCE IV Last administered on 18:11; Start 05/18/17 at 18:30; Stop 05/18/17 at 18:59; Status DC Fentanyl Citrate (Fentanyl 2ml Vial) 25 mcg PRN Q1HR PRN IV PAIN; Start at 18:30; Stop 05/19/17 at 18:29 Ondansetron HCl (Zofran) 4 mg PRN Q6HRS PRN IV NAUSEA/VOMITING; Start 05/18/17 at 18:30 Prochlorperazine Edisylate (Compazine) 10 mg PRN Q6HRS PRN IV NAUSEA/VOMITING; Start 05/18/17 at 18:30 Prochlorperazine (Compazine) 25 mg PRN Q12HR PRN [place] NAUSEA/VOMITING; Start 05/18/17 at 18:30 Al Hydroxide/Mg Hydroxide (Mylanta Plus Xs) 30 ml PRN Q3HRS PRN PO HEARTBURN / GAS; Start 05/18/17 at 18:30 Calcium Carbonate/ Glycine (Tums) 500 mg PRN Q3HRS PRN PO UPSET STOMACH; Start 05/18/17 at 18:30 Oxycodone HCl (Roxicodone) 5 mg PRN Q3HRS PRN PO BREAKTHROUGH PAIN; Start 05/18 at 18:30 Morphine Sulfate 1 mg PRN Q1HR PRN IV PAIN Last administered on 05/19/17 11:39 ; Start 05/18/17 at 18:30 Ketorolac Tromethamine (Toradol) 15 mg PRN Q6HRS PRN IV PAIN Last administered on 05/19/17 08:58; Start 05/18/17 at 18:30; Stop 05/23/17 at 18:29 Acetaminophen (Tylenol) 650 mg PRN Q6HRS PRN PO Headaches, Temp > 101.5F; Start 05/18/17 at 18:30 Ibuprofen (Motrin) 400 mg PRN Q6HRS PRN PO MILD PAIN; Start 05/18/17 at 18:30 Senna/Docusate Sodium (Senna Plus) 1 tab BID PO ; Start 05/18/17 at 21:00 Magnesium Hydroxide (Milk Of Magnesia) 2,400 mg PRN Q12HR PRN PO CONSTIPATION; Start 05/18/17 at 18:30 Enoxaparin Sodium (Lovenox 40mg Syringe) 40 mg Q24H SQ Last administered on 23:07; Start 05/18/17 at 20:00 Sodium Chloride 1,000 ml @ 75 mls/hr 1X ONCE IV Last administered on 19:00; Start 05/18/17 at 19:00; Stop 05/19/17 at 08:19; Status DC Lidocaine (Lidoderm) 1 patch DAILY TD ; Start 05/19/17 at 09:00 Divalproex Sodium (Depakote Sprinkles) 125 mg BID PO Last administered on 12:13; Start 05/19/17 at 12:00 Ferrous Sulfate (Feosol) 325 mg DAILYWBKFT PO Last administered on 05/19/17 12 :13; Start 05/19/17 at 12:00 Albuterol/ Ipratropium (Duoneb) 3 ml RTQID NEB Last administered on 05/19/17 13:09; Start 05/19/17 at 12:00 Levothyroxine Sodium (Synthroid) 112 mcg DAILY07 PO ; Start 05/20/17 at 07:00 Mirtazapine (Remeron) 7.5 mg QHS PO ; Start 05/19/17 at 21:00 Non-Formulary Medication 1 tab QHS PO ; Start 05/19/17 at 21:00; Stop 05/19/17 at 21:00; Status DC Pantoprazole Sodium (Protonix) 40 mg DAILYAC PO Last administered on 05/19/17 12:13; Start 05/19/17 at 12:00 Hydralazine HCl (Apresoline) 10 mg PRN Q4HRS PRN IVP ELEVATED BP, SEE COMMENTS ; Start 05/19/17 at 11:45 Sodium Chloride 1,000 ml @ 50 mls/hr Q20H IV Last administered on 05/19/17t 13 :15; Start 05/19/17 at 13:15 Active Scripts Active Keflex (Cephalexin) 250 Mg Capsule 1 Cap PO TID Reported Seroquel (Quetiapine Fumarate) 25 Mg Tablet 12.5 Mg PO BID Remeron (Mirtazapine) 15 Mg Tablet 0.5 Tab PO QHS Omeprazole 20 Mg Tablet.dr 1 Tab PO DAILY Potassium Chloride 10 Meq Capsule.er 10 Meq PO DAILY Melatonin 3 Mg Tablet 1 Tab PO QHS Levothyroxine Sodium 112 Mcg Tablet 1 Tab PO DAILY 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 Crush per order mix with pudding or applesauce Ferrous Sulfate 325 Mg Tablet 1 Tab PO DAILY Duoneb 0.5-3(2.5) Mg/3 Ml (Albuterol/Ipratropium) 3 Ml Ampul.neb 3 Ml NEB QID Divalproex Sodium 125 Mg Cap.sprink 125 Mg PO BID Vitals/I & O Vital Sign - Last 24 Hours 05/18/17 05/18/17 05/18/17 05/18/17 15:15 15:31 15:46 15:52 Temp 98.1 98.1 Pulse 83 84 81 Resp 24 36 22 20 B/P (MAP) 138/82 (100) 143/77 (99) 113/71 (85) Pulse Ox 86 93 93 94 O2 Delivery Room Air Nasal Cannula Nasal Cannula Nasal Cannula O2 Flow Rate 2.0 2.0 3.0 05/18/17 05/18/17 05/18/17 05/18/17 16:01 16:23 16:30 17:00 Pulse 78 80 78 Resp 18 20 27 B/P (MAP) 140/73 (95) 159/83 (108) 124/84 (97) Pulse Ox 93 95 96 O2 Delivery Nasal Cannula Nasal Cannula Nasal Cannula O2 Flow Rate 2.0 3.0 3.0 05/18/17 05/18/17 05/18/17 05/18/17 17:02 17:30 18:00 18:06 Pulse 76 76 Resp 32 24 24 B/P (MAP) 130/70 (90) 152/76 (101) Pulse Ox 96 94 92 95 O2 Delivery Nasal Cannula Nasal Cannula Nasal Cannula Nasal Cannula O2 Flow Rate 2.0 3.0 3.0 3.0 05/18/17 05/19/17 05/19/17 05/19/17 19:00 03:35 07:00 08:15 Temp 98.3 98.1 98.3 98.1 Pulse 76 61 Resp 18 16 B/P (MAP) 124/78 (93) 129/76 (93) Pulse Ox 96 97 O2 Delivery Nasal Cannula Nasal Cannula Nasal Cannula Nasal Cannula O2 Flow Rate 3.0 2.0 2.0 2.0 05/19/17 05/19/17 05/19/17 05/19/17 11:00 11:39 12:09 13:10 Temp 98.0 98.0 Pulse 60 Resp 16 B/P (MAP) 143/82 (102) Pulse Ox 96 97 97 97 O2 Delivery Nasal Cannula Nasal Cannula Nasal Cannula Nasal Cannula O2 Flow Rate 2.0 2.0 2.0 3.0 Nutrition Consultation Dietary Evaluation: Recommendations by RD: Increase Calorie Intake, Protein supplementation Comments: added boost puddding and magic cup to meals pt needs assist w/ feeding Expected Outcomes/Goals: to meet > 75% est nutr needs Malnutrition Findings: Body Fat Depletion (Non Severe: Mild Depletion Weight Status: Appropriate NEHAL ROTHMAN MD May 19, 2017 14:34
[2017-05-19 15:00] VITALS: BP 122/78
--- NOTE | 2017-05-19 16:28 | PDOC ---
PROGRESS NOTES Subjective Subjective patient seen and examined at 1520 S/p at [facility] no neck pain compression fracture new since 2016 at C7 diffuse osteopenia moves all extremities except left lower extremities, sensation intact in all extremities follows commands inconsistently no specific treatment required for C7 fracture may return to [facility] when medically stable full consult to follow Objective Objective Vital Signs Date Time Temp Pulse Resp B/P (MAP) Pulse Ox O2 Delivery O2 Flow Rate FiO2 05/19/17 15:40 Nasal Cannula 3.0 05/19/17 15:00 97.9 16 16 122/78 (93) 93 97.9 Assessment Assessment Problems Medical Problems: (1) Cervical compression fracture Status: Acute (2) Urinary tract infection Status: Acute Comment Review of Relevant I have reviewed the following items tavon (where applicable) has been applied. Labs Laboratory Tests Test 05/18/17 15:43 05/18/17 15:57 05/18/17 17:52 05/19/17 05:10 White Blood Count 11.4 x10^3/uL (4.0-11.0) 6.9 x10^3/uL (4.0-11.0) Red Blood Count 4.14 x10^6/uL (3.50-5.40) 3.75 x10^6/uL (3.50-5.40) Hemoglobin 13.4 g/dL (12.0-15.5) 12.6 g/dL (12.0-15.5) Hematocrit 42.1 % (36.0-47.0) 37.4 % (36.0-47.0) Mean Corpuscular Volume 102 fL (79-100) 100 fL (79-100) Mean Corpuscular Hemoglobin 33 pg (25-35) 34 pg (25-35) Mean Corpuscular Hemoglobin Concent 32 g/dL (31-37) 34 g/dL (31-37) Red Cell Distribution Width 20.0 % (11.5-14.5) 20.0 % (11.5-14.5) Platelet Count 182 x10^3/uL (140-400) 152 x10^3/uL (140-400) Neutrophils (%) (Auto) 82 % (31-73) 68 % (31-73) Lymphocytes (%) (Auto) 9 % (24-48) 18 % (24-48) Monocytes (%) (Auto) 8 % (0-9) 12 % (0-9) Eosinophils (%) (Auto) 1 % (0-3) 3 % (0-3) Basophils (%) (Auto) 0 % (0-3) 1 % (0-3) Neutrophils # (Auto) 9.4 x10^3uL (1.8-7.7) 4.7 x10^3uL (1.8-7.7) Lymphocytes # (Auto) 1.0 x10^3/uL (1.0-4.8) 1.2 x10^3/uL (1.0-4.8) Monocytes # (Auto) 0.9 x10^3/uL (0.0-1.1) 0.8 x10^3/uL (0.0-1.1) Eosinophils # (Auto) 0.1 x10^3/uL (0.0-0.7) 0.2 x10^3/uL (0.0-0.7) Basophils # (Auto) 0.0 x10^3/uL (0.0-0.2) 0.0 x10^3/uL (0.0-0.2) Sodium Level 137 mmol/L (136-145) 139 mmol/L (136-145) Potassium Level 5.6 mmol/L (3.5-5.1) 5.0 mmol/L (3.5-5.1) 4.3 mmol/L (3.5-5.1) Chloride Level 100 mmol/L (98-107) 103 mmol/L (98-107) Carbon Dioxide Level 34 mmol/L (21-32) 32 mmol/L (21-32) Anion Gap 3 (6-14) 4 (6-14) Blood Urea Nitrogen 32 mg/dL (7-20) 21 mg/dL (7-20) Creatinine 0.9 mg/dL (0.6-1.0) 0.6 mg/dL (0.6-1.0) Estimated GFR (Cockcroft-Gault) 59.7 95.2 BUN/Creatinine Ratio 36 (6-20) 35 (6-20) Glucose Level 118 mg/dL (70-99) 84 mg/dL (70-99) Calcium Level 9.1 mg/dL (8.5-10.1) 8.7 mg/dL (8.5-10.1) Total Bilirubin 0.4 mg/dL (0.2-1.0) 0.7 mg/dL (0.2-1.0) Aspartate Amino Transf (AST/SGOT) 30 U/L (15-37) 20 U/L (15-37) Alanine Aminotransferase (ALT/SGPT) 35 U/L (14-59) 23 U/L (14-59) Alkaline Phosphatase 66 U/L (46-116) 43 U/L (46-116) Total Protein 7.7 g/dL (6.4-8.2) 6.5 g/dL (6.4-8.2) Albumin 3.7 g/dL (3.4-5.0) 3.1 g/dL (3.4-5.0) Albumin/Globulin Ratio 0.9 (1.0-1.7) 0.9 (1.0-1.7) Urine Collection Type Unknown Urine Color Yellow Urine Clarity Cloudy Urine pH 7.0 Urine Specific [place] 1.020 Urine Protein Negative mg/dL (NEG-TRACE) Urine Glucose (UA) Negative mg/dL (NEG) Urine Ketones (Stick) Negative mg/dL (NEG) Urine Blood Trace (NEG) Urine Nitrite Negative (NEG) Urine Bilirubin Negative (NEG) Urine Urobilinogen Dipstick 0.2 mg/dL (0.2 mg/dL) Urine Leukocyte Esterase Large (NEG) Urine RBC 0 /HPF (0-2) Urine WBC Tntc /HPF (0-4) Urine Squamous Epithelial Cells Few /LPF Urine Bacteria Many /HPF (0-FEW) Thyroid Stimulating Hormone (TSH) 27.916 uIU/mL (0.358-3.74) Free Thyroxine 0.50 ng/dL (0.76-1.46) Free Triiodothyronine (T3) pg/mL < 0.50 pg/mL (2.18-3.98) Platelet Estimate Adequate (ADEQUATE) Large Platelets Few Poikilocytosis Present Anisocytosis Slight Macrocytosis Present Phosphorus Level 3.4 mg/dL (2.6-4.7) Magnesium Level 2.1 mg/dL (1.8-2.4) Laboratory Tests Test 05/18/17 17:52 05/19/17 05:10 Potassium Level 5.0 mmol/L (3.5-5.1) 4.3 mmol/L (3.5-5.1) Thyroid Stimulating Hormone (TSH) 27.916 uIU/mL (0.358-3.74) Free Thyroxine 0.50 ng/dL (0.76-1.46) Free Triiodothyronine (T3) pg/mL < 0.50 pg/mL (2.18-3.98) White Blood Count 6.9 x10^3/uL (4.0-11.0) Red Blood Count 3.75 x10^6/uL (3.50-5.40) Hemoglobin 12.6 g/dL (12.0-15.5) Hematocrit 37.4 % (36.0-47.0) Mean Corpuscular Volume 100 fL (79-100) Mean Corpuscular Hemoglobin 34 pg (25-35) Mean Corpuscular Hemoglobin Concent 34 g/dL (31-37) Red Cell Distribution Width 20.0 % (11.5-14.5) Platelet Count 152 x10^3/uL (140-400) Neutrophils (%) (Auto) 68 % (31-73) Lymphocytes (%) (Auto) 18 % (24-48) Monocytes (%) (Auto) 12 % (0-9) Eosinophils (%) (Auto) 3 % (0-3) Basophils (%) (Auto) 1 % (0-3) Neutrophils # (Auto) 4.7 x10^3uL (1.8-7.7) Lymphocytes # (Auto) 1.2 x10^3/uL (1.0-4.8) Monocytes # (Auto) 0.8 x10^3/uL (0.0-1.1) Eosinophils # (Auto) 0.2 x10^3/uL (0.0-0.7) Basophils # (Auto) 0.0 x10^3/uL (0.0-0.2) Platelet Estimate Adequate (ADEQUATE) Large Platelets Few Poikilocytosis Present Anisocytosis Slight Macrocytosis Present Sodium Level 139 mmol/L (136-145) Chloride Level 103 mmol/L (98-107) Carbon Dioxide Level 32 mmol/L (21-32) Anion Gap 4 (6-14) Blood Urea Nitrogen 21 mg/dL (7-20) Creatinine 0.6 mg/dL (0.6-1.0) Estimated GFR (Cockcroft-Gault) 95.2 BUN/Creatinine Ratio 35 (6-20) Glucose Level 84 mg/dL (70-99) Calcium Level 8.7 mg/dL (8.5-10.1) Phosphorus Level 3.4 mg/dL (2.6-4.7) Magnesium Level 2.1 mg/dL (1.8-2.4) Total Bilirubin 0.7 mg/dL (0.2-1.0) Aspartate Amino Transf (AST/SGOT) 20 U/L (15-37) Alanine Aminotransferase (ALT/SGPT) 23 U/L (14-59) Alkaline Phosphatase 43 U/L (46-116) Total Protein 6.5 g/dL (6.4-8.2) Albumin 3.1 g/dL (3.4-5.0) Albumin/Globulin Ratio 0.9 (1.0-1.7) Medications Current Medications Sodium Chloride 1,000 ml @ 1,000 mls/hr 1X ONCE IV Last administered on 15:53; Start 05/18/17 at 15:30; Stop 05/18/17 at 16:29; Status DC Fentanyl Citrate (Fentanyl 2ml Vial) 25 mcg PRN Q15MIN PRN IV PAIN Last administered on 05/18/17 18:06; Start 05/18/17 at 15:45; Stop 05/18/17 at 18:06 ; Status DC Albuterol/ Ipratropium (Duoneb) 3 ml 1X ONCE NEB Last administered on 16:56; Start 05/18/17 at 17:00; Stop 05/18/17 at 17:01; Status DC Ceftriaxone Sodium 50 ml @ 100 mls/hr 1X ONCE IV Last administered on 18:11; Start 05/18/17 at 18:30; Stop 05/18/17 at 18:59; Status DC Fentanyl Citrate (Fentanyl 2ml Vial) 25 mcg PRN Q1HR PRN IV PAIN; Start at 18:30; Stop 05/19/17 at 18:29 Ondansetron HCl (Zofran) 4 mg PRN Q6HRS PRN IV NAUSEA/VOMITING; Start 05/18/17 at 18:30 Prochlorperazine Edisylate (Compazine) 10 mg PRN Q6HRS PRN IV NAUSEA/VOMITING; Start 05/18/17 at 18:30 Prochlorperazine (Compazine) 25 mg PRN Q12HR PRN OR NAUSEA/VOMITING; Start 05/18/17 at 18:30 Al Hydroxide/Mg Hydroxide (Mylanta Plus Xs) 30 ml PRN Q3HRS PRN PO HEARTBURN / GAS; Start 05/18/17 at 18:30 Calcium Carbonate/ Glycine (Tums) 500 mg PRN Q3HRS PRN PO UPSET STOMACH; Start 05/18/17 at 18:30 Oxycodone HCl (Roxicodone) 5 mg PRN Q3HRS PRN PO BREAKTHROUGH PAIN; Start 05/18 at 18:30 Morphine Sulfate 1 mg PRN Q1HR PRN IV PAIN Last administered on 05/19/17 11:39 ; Start 05/18/17 at 18:30 Ketorolac Tromethamine (Toradol) 15 mg PRN Q6HRS PRN IV PAIN Last administered on 05/19/17 08:58; Start 05/18/17 at 18:30; Stop 05/23/17 at 18:29 Acetaminophen (Tylenol) 650 mg PRN Q6HRS PRN PO Headaches, Temp > 101.5F; Start 05/18/17 at 18:30 Ibuprofen (Motrin) 400 mg PRN Q6HRS PRN PO MILD PAIN; Start 05/18/17 at 18:30; Stop 05/19/17 at 14:31; Status DC Senna/Docusate Sodium (Senna Plus) 1 tab BID PO ; Start 05/18/17 at 21:00 Magnesium Hydroxide (Milk Of Magnesia) 2,400 mg PRN Q12HR PRN PO CONSTIPATION; Start 05/18/17 at 18:30 Enoxaparin Sodium (Lovenox 40mg Syringe) 40 mg Q24H SQ Last administered on 23:07; Start 05/18/17 at 20:00 Sodium Chloride 1,000 ml @ 75 mls/hr 1X ONCE IV Last administered on 19:00; Start 05/18/17 at 19:00; Stop 05/19/17 at 08:19; Status DC Lidocaine (Lidoderm) 1 patch DAILY TD ; Start 05/19/17 at 09:00 Divalproex Sodium (Depakote Sprinkles) 125 mg BID PO Last administered on 12:13; Start 05/19/17 at 12:00 Ferrous Sulfate (Feosol) 325 mg DAILYWBKFT PO Last administered on 05/19/17 12 :13; Start 05/19/17 at 12:00 Albuterol/ Ipratropium (Duoneb) 3 ml RTQID NEB Last administered on 05/19/17 15:40; Start 05/19/17 at 12:00 Levothyroxine Sodium (Synthroid) 112 mcg DAILY07 PO ; Start 05/20/17 at 07:00 Mirtazapine (Remeron) 7.5 mg QHS PO ; Start 05/19/17 at 21:00 Non-Formulary Medication 1 tab QHS PO ; Start 05/19/17 at 21:00; Stop 05/19/17 at 21:00; Status DC Pantoprazole Sodium (Protonix) 40 mg DAILYAC PO Last administered on 05/19/17 12:13; Start 05/19/17 at 12:00 Hydralazine HCl (Apresoline) 10 mg PRN Q4HRS PRN IVP ELEVATED BP, SEE COMMENTS ; Start 05/19/17 at 11:45 Sodium Chloride 1,000 ml @ 50 mls/hr Q20H IV Last administered on 05/19/17 13 :15; Start 05/19/17 at 13:15 Active Scripts Active Keflex (Cephalexin) 250 Mg Capsule 1 Cap PO TID Reported Seroquel (Quetiapine Fumarate) 25 Mg Tablet 12.5 Mg PO BID Remeron (Mirtazapine) 15 Mg Tablet 0.5 Tab PO QHS Omeprazole 20 Mg Tablet.dr 1 Tab PO DAILY Potassium Chloride 10 Meq Capsule.er 10 Meq PO DAILY Melatonin 3 Mg Tablet 1 Tab PO QHS Levothyroxine Sodium 112 Mcg Tablet 1 Tab PO DAILY 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 Crush per order mix with pudding or applesauce Ferrous Sulfate 325 Mg Tablet 1 Tab PO DAILY Duoneb 0.5-3(2.5) Mg/3 Ml (Albuterol/Ipratropium) 3 Ml Ampul.neb 3 Ml NEB QID Divalproex Sodium 125 Mg Cap.sprink 125 Mg PO BID Vitals/I & O Vital Sign - Last 24 Hours 05/18/17 05/18/17 05/18/17 05/18/17 16:23 16:30 17:00 17:02 Pulse 80 78 Resp 20 27 B/P (MAP) 159/83 (108) 124/84 (97) Pulse Ox 95 96 96 O2 Delivery Nasal Cannula Nasal Cannula Nasal Cannula O2 Flow Rate 3.0 3.0 2.0 05/18/17 05/18/17 05/18/17 05/18/17 17:30 18:00 18:06 19:00 Pulse 76 76 Resp 32 24 24 B/P (MAP) 130/70 (90) 152/76 (101) Pulse Ox 94 92 95 O2 Delivery Nasal Cannula Nasal Cannula Nasal Cannula Nasal Cannula O2 Flow Rate 3.0 3.0 3.0 3.0 05/19/17 05/19/17 05/19/17 05/19/17 03:35 07:00 08:15 11:00 Temp 98.3 98.1 98.0 98.3 98.1 98.0 Pulse 76 61 60 Resp 18 16 16 B/P (MAP) 124/78 (93) 129/76 (93) 143/82 (102) Pulse Ox 96 97 96 O2 Delivery Nasal Cannula Nasal Cannula Nasal Cannula Nasal Cannula O2 Flow Rate 2.0 2.0 2.0 2.0 05/19/17 05/19/17 05/19/17 05/19/17 11:39 12:09 13:10 15:00 Temp 97.9 97.9 Pulse 16 Resp 16 B/P (MAP) 122/78 (93) Pulse Ox 97 97 97 93 O2 Delivery Nasal Cannula Nasal Cannula Nasal Cannula Nasal Cannula O2 Flow Rate 2.0 2.0 3.0 2.0 05/19/17 15:40 O2 Delivery Nasal Cannula O2 Flow Rate 3.0 Nutrition Consultation Dietary Evaluation: Recommendations by RD: Increase Calorie Intake, Protein supplementation Comments: added boost puddding and magic cup to meals pt needs assist w/ feeding Expected Outcomes/Goals: to meet > 75% est nutr needs Malnutrition Findings: Body Fat Depletion (Non Severe: Mild Depletion Weight Status: Appropriate PRESLEY ARMAS MD May 19, 2017 16:28
[2017-05-19 19:00] VITALS: BP 114/77
[2017-05-19] MEDS: MIRTAZAPINE 15 MG TABLET PO SCH (20:36)
[2017-05-19] MEDS: ENOXAPARIN 40 MG/0.4 ML SYRINGE. SQ SCH (20:36)
[2017-05-19] MEDS ORDERED: NON FORMULARY ITEM (Melatonin 1 TAB) PO SCH (21:00)
--- NOTE | 2017-05-19 22:19 | PDOC ---
PROGRESS NOTES Subjective Subjective Problems overnight: Objective Vital Signs Vital Signs Date Time Temp Pulse Resp B/P (MAP) Pulse Ox O2 Delivery O2 Flow Rate FiO2 05/19/17 21:31 94 Nasal Cannula 3.0 05/19/17 19:00 97.7 72 22 114/77 (89) 97.7 Labs Laboratory Tests Test 05/18/17 15:43 05/18/17 15:57 05/18/17 17:52 05/19/17 05:10 White Blood Count 11.4 x10^3/uL (4.0-11.0) 6.9 x10^3/uL (4.0-11.0) Red Blood Count 4.14 x10^6/uL (3.50-5.40) 3.75 x10^6/uL (3.50-5.40) Hemoglobin 13.4 g/dL (12.0-15.5) 12.6 g/dL (12.0-15.5) Hematocrit 42.1 % (36.0-47.0) 37.4 % (36.0-47.0) Mean Corpuscular Volume 102 fL (79-100) 100 fL (79-100) Mean Corpuscular Hemoglobin 33 pg (25-35) 34 pg (25-35) Mean Corpuscular Hemoglobin Concent 32 g/dL (31-37) 34 g/dL (31-37) Red Cell Distribution Width 20.0 % (11.5-14.5) 20.0 % (11.5-14.5) Platelet Count 182 x10^3/uL (140-400) 152 x10^3/uL (140-400) Neutrophils (%) (Auto) 82 % (31-73) 68 % (31-73) Lymphocytes (%) (Auto) 9 % (24-48) 18 % (24-48) Monocytes (%) (Auto) 8 % (0-9) 12 % (0-9) Eosinophils (%) (Auto) 1 % (0-3) 3 % (0-3) Basophils (%) (Auto) 0 % (0-3) 1 % (0-3) Neutrophils # (Auto) 9.4 x10^3uL (1.8-7.7) 4.7 x10^3uL (1.8-7.7) Lymphocytes # (Auto) 1.0 x10^3/uL (1.0-4.8) 1.2 x10^3/uL (1.0-4.8) Monocytes # (Auto) 0.9 x10^3/uL (0.0-1.1) 0.8 x10^3/uL (0.0-1.1) Eosinophils # (Auto) 0.1 x10^3/uL (0.0-0.7) 0.2 x10^3/uL (0.0-0.7) Basophils # (Auto) 0.0 x10^3/uL (0.0-0.2) 0.0 x10^3/uL (0.0-0.2) Sodium Level 137 mmol/L (136-145) 139 mmol/L (136-145) Potassium Level 5.6 mmol/L (3.5-5.1) 5.0 mmol/L (3.5-5.1) 4.3 mmol/L (3.5-5.1) Chloride Level 100 mmol/L (98-107) 103 mmol/L (98-107) Carbon Dioxide Level 34 mmol/L (21-32) 32 mmol/L (21-32) Anion Gap 3 (6-14) 4 (6-14) Blood Urea Nitrogen 32 mg/dL (7-20) 21 mg/dL (7-20) Creatinine 0.9 mg/dL (0.6-1.0) 0.6 mg/dL (0.6-1.0) Estimated GFR (Cockcroft-Gault) 59.7 95.2 BUN/Creatinine Ratio 36 (6-20) 35 (6-20) Glucose Level 118 mg/dL (70-99) 84 mg/dL (70-99) Calcium Level 9.1 mg/dL (8.5-10.1) 8.7 mg/dL (8.5-10.1) Total Bilirubin 0.4 mg/dL (0.2-1.0) 0.7 mg/dL (0.2-1.0) Aspartate Amino Transf (AST/SGOT) 30 U/L (15-37) 20 U/L (15-37) Alanine Aminotransferase (ALT/SGPT) 35 U/L (14-59) 23 U/L (14-59) Alkaline Phosphatase 66 U/L (46-116) 43 U/L (46-116) Total Protein 7.7 g/dL (6.4-8.2) 6.5 g/dL (6.4-8.2) Albumin 3.7 g/dL (3.4-5.0) 3.1 g/dL (3.4-5.0) Albumin/Globulin Ratio 0.9 (1.0-1.7) 0.9 (1.0-1.7) Urine Collection Type Unknown Urine Color Yellow Urine Clarity Cloudy Urine pH 7.0 Urine Specific [place] 1.020 Urine Protein Negative mg/dL (NEG-TRACE) Urine Glucose (UA) Negative mg/dL (NEG) Urine Ketones (Stick) Negative mg/dL (NEG) Urine Blood Trace (NEG) Urine Nitrite Negative (NEG) Urine Bilirubin Negative (NEG) Urine Urobilinogen Dipstick 0.2 mg/dL (0.2 mg/dL) Urine Leukocyte Esterase Large (NEG) Urine RBC 0 /HPF (0-2) Urine WBC Tntc /HPF (0-4) Urine Squamous Epithelial Cells Few /LPF Urine Bacteria Many /HPF (0-FEW) Thyroid Stimulating Hormone (TSH) 27.916 uIU/mL (0.358-3.74) Free Thyroxine 0.50 ng/dL (0.76-1.46) Free Triiodothyronine (T3) pg/mL < 0.50 pg/mL (2.18-3.98) Platelet Estimate Adequate (ADEQUATE) Large Platelets Few Poikilocytosis Present Anisocytosis Slight Macrocytosis Present Phosphorus Level 3.4 mg/dL (2.6-4.7) Magnesium Level 2.1 mg/dL (1.8-2.4) Laboratory Tests Test 05/19/17 05:10 White Blood Count 6.9 x10^3/uL (4.0-11.0) Red Blood Count 3.75 x10^6/uL (3.50-5.40) Hemoglobin 12.6 g/dL (12.0-15.5) Hematocrit 37.4 % (36.0-47.0) Mean Corpuscular Volume 100 fL (79-100) Mean Corpuscular Hemoglobin 34 pg (25-35) Mean Corpuscular Hemoglobin Concent 34 g/dL (31-37) Red Cell Distribution Width 20.0 % (11.5-14.5) Platelet Count 152 x10^3/uL (140-400) Neutrophils (%) (Auto) 68 % (31-73) Lymphocytes (%) (Auto) 18 % (24-48) Monocytes (%) (Auto) 12 % (0-9) Eosinophils (%) (Auto) 3 % (0-3) Basophils (%) (Auto) 1 % (0-3) Neutrophils # (Auto) 4.7 x10^3uL (1.8-7.7) Lymphocytes # (Auto) 1.2 x10^3/uL (1.0-4.8) Monocytes # (Auto) 0.8 x10^3/uL (0.0-1.1) Eosinophils # (Auto) 0.2 x10^3/uL (0.0-0.7) Basophils # (Auto) 0.0 x10^3/uL (0.0-0.2) Platelet Estimate Adequate (ADEQUATE) Large Platelets Few Poikilocytosis Present Anisocytosis Slight Macrocytosis Present Sodium Level 139 mmol/L (136-145) Potassium Level 4.3 mmol/L (3.5-5.1) Chloride Level 103 mmol/L (98-107) Carbon Dioxide Level 32 mmol/L (21-32) Anion Gap 4 (6-14) Blood Urea Nitrogen 21 mg/dL (7-20) Creatinine 0.6 mg/dL (0.6-1.0) Estimated GFR (Cockcroft-Gault) 95.2 BUN/Creatinine Ratio 35 (6-20) Glucose Level 84 mg/dL (70-99) Calcium Level 8.7 mg/dL (8.5-10.1) Phosphorus Level 3.4 mg/dL (2.6-4.7) Magnesium Level 2.1 mg/dL (1.8-2.4) Total Bilirubin 0.7 mg/dL (0.2-1.0) Aspartate Amino Transf (AST/SGOT) 20 U/L (15-37) Alanine Aminotransferase (ALT/SGPT) 23 U/L (14-59) Alkaline Phosphatase 43 U/L (46-116) Total Protein 6.5 g/dL (6.4-8.2) Albumin 3.1 g/dL (3.4-5.0) Albumin/Globulin Ratio 0.9 (1.0-1.7) Assessment Assessment POD# [], S/P [] Problems: Plan Plan of Care I have not yet seen the patient. I reviewed her history and imaging. There is no reason from a pelvis standpoint that she can not be weight bearing as tolerated and activity as tolerated with physical therapy pain control dvt ppx vitamin D level please pt.ot. full consult to follow in the am. SUKHJINDER GARCIA MD May 19, 2017 22:19
[2017-05-19 23:00] VITALS: BP 128/69
[2017-05-20] MEDS: MORPHINE SULFATE 4 MG/ML DISP.SYRIN. IV PRN ×6 (02:29→20:38)
[2017-05-20 03:00] VITALS: BP 134/74
[2017-05-20 05:08] LABS: BASO # 0.1 x10^3/uL (0.0-0.2); BASO % 1 % (0-3); EOS % 4 % (0-3); HEMATOCRIT 36.5 % (36.0-47.0); HEMOGLOBIN 11.8 g/dL (12.0-15.5); LYMPH # 1.2 x10^3/uL (1.0-4.8); LYMPH % 16 % (24-48); MEAN CORPUSCULAR HEMOGLOBIN 33 pg (25-35); MEAN CORPUSCULAR HGB CONC 32 g/dL (31-37); MEAN CORPUSCULAR VOLUME 102 fL (79-100); MONO % 10 % (0-9); NEUT % 70 % (31-73); PLATELET COUNT 136 x10^3/uL (140-400); RED BLOOD COUNT 3.58 x10^6/uL (3.50-5.40); RED CELL DISTRIBUTION WIDTH 20.6 % (11.5-14.5); WHITE BLOOD COUNT 7.6 x10^3/uL (4.0-11.0)
[2017-05-20 05:42] LABS: CALCIUM 8.1 mg/dL (8.5-10.1); CREATININE 0.8 mg/dL (0.6-1.0); GFR 68.3; POTASSIUM 4.7 mmol/L (3.5-5.1)
[2017-05-20] MEDS: LEVOTHYROXINE 112 MCG TABLET PO SCH (06:29)
[2017-05-20] MEDS: PANTOPRAZOLE 40 MG TABLET.DR. PO SCH (06:30)
[2017-05-20 07:00] VITALS: BP 119/69
[2017-05-20] MEDS: IPRATRPIUM/ALBUTEROL 0.5/2.5MG 3 ML NEBU. NEB SCH ×4 (07:30→20:00)
[2017-05-20 11:00] VITALS: BP 109/45
[2017-05-20] MEDS: DIVALPROEX SPRINKLES 125 MG CAPSULE. PO SCH ×2 (11:03→20:24)
[2017-05-20] MEDS: FERROUS SULFATE 325 MG TABLET. PO SCH (11:04)
[2017-05-20] MEDS: SENNOSIDES/DOCUSATE 8.6/50MG TABLET. PO SCH ×2 (11:04→20:24)
[2017-05-20] MEDS: IV NORMAL SALINE 1000ML BAG 1,000 ML IV SCH (11:08)
[2017-05-20] MEDS: LIDOCAINE (700MG/PATCH) PATCH. TD SCH (11:12)
--- NOTE | 2017-05-20 12:46 | PDOC ---
PROGRESS NOTES Chief Complaint Chief Complaint FAll in SNU traumatic acute new C7 fx multiple chronic pelvic fx and new pelvic fx from all Stable multiple compression fx thoracic spine and lumbar spine severe dementia DYsphagia on mechanical soft diet Geriatric, high fall risk, high asp risk . 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 - on narcs in SNU Hyperkalemia likely of dehydration plan: neurosx, ortho consulted, no intervention on neck collar, will check with neurosx to see if can take it off cont home meds cont synthroid,no dose increased yet PAT consult for dnr and goal of care swallow eval, now on dysphagia 2 diet dvt ppx low po intake, low IVF for now check b12 normal check vitd SW consult, need to transfer back to SNF hope tmr when have a plan from PAT History of Present Illness History of Present Illness ROS: no fever, chills, sob, or chest pain pt awake , alert, aaox0, not know her last name, place or date not know why she is in hosp say yes when i told her that she fell got angry when i asked her questions TSH very high with low t4, doubt takes meds in SNF low po intake Vitals Vitals Vital Signs Date Time Temp Pulse Resp B/P (MAP) Pulse Ox O2 Delivery O2 Flow Rate FiO2 05/20/17 11:42 92 Nasal Cannula 3.0 05/20/17 11:00 98.1 73 16 109/45 (66) 98.1 Physical Exam Physical Exam aox0, neck collar General: Alert, No acute distress, Other (does not answer to qs but is awake and not in distress) Heart: Regular rate, Normal S1, Normal S2 Lungs: Clear Abdomen: Normal bowel sounds, Soft, No tenderness, No hepatosplenomegaly, No masses Extremities: No clubbing, No cyanosis, No edema, Normal pulses, No tenderness/ swelling, Other (minimal subQ tissue) Skin: No rashes, No breakdown, No significant lesion Labs LABS Laboratory Tests Test 05/20/17 04:45 White Blood Count 7.6 x10^3/uL (4.0-11.0) Red Blood Count 3.58 x10^6/uL (3.50-5.40) Hemoglobin 11.8 g/dL (12.0-15.5) Hematocrit 36.5 % (36.0-47.0) Mean Corpuscular Volume 102 fL (79-100) Mean Corpuscular Hemoglobin 33 pg (25-35) Mean Corpuscular Hemoglobin Concent 32 g/dL (31-37) Red Cell Distribution Width 20.6 % (11.5-14.5) Platelet Count 136 x10^3/uL (140-400) Neutrophils (%) (Auto) 70 % (31-73) Lymphocytes (%) (Auto) 16 % (24-48) Monocytes (%) (Auto) 10 % (0-9) Eosinophils (%) (Auto) 4 % (0-3) Basophils (%) (Auto) 1 % (0-3) Neutrophils # (Auto) 5.3 x10^3uL (1.8-7.7) Lymphocytes # (Auto) 1.2 x10^3/uL (1.0-4.8) Monocytes # (Auto) 0.8 x10^3/uL (0.0-1.1) Eosinophils # (Auto) 0.3 x10^3/uL (0.0-0.7) Basophils # (Auto) 0.1 x10^3/uL (0.0-0.2) Sodium Level 138 mmol/L (136-145) Potassium Level 4.7 mmol/L (3.5-5.1) Chloride Level 103 mmol/L (98-107) Carbon Dioxide Level 33 mmol/L (21-32) Anion Gap 2 (6-14) Blood Urea Nitrogen 18 mg/dL (7-20) Creatinine 0.8 mg/dL (0.6-1.0) Estimated GFR (Cockcroft-Gault) 68.3 Glucose Level 73 mg/dL (70-99) Calcium Level 8.1 mg/dL (8.5-10.1) Vitamin B12 Level 689 pg/mL (247-911) Assessment and Plan Assessmemt and Plan Problems Medical Problems: (1) Cervical compression fracture Status: Acute (2) Urinary tract infection Status: Acute Problems: Comment Review of Relevant I have reviewed the following items tavon (where applicable) has been applied. Labs Laboratory Tests Test 05/18/17 15:43 05/18/17 15:57 05/18/17 17:52 05/18/17 22:30 White Blood Count 11.4 x10^3/uL (4.0-11.0) Red Blood Count 4.14 x10^6/uL (3.50-5.40) Hemoglobin 13.4 g/dL (12.0-15.5) Hematocrit 42.1 % (36.0-47.0) Mean Corpuscular Volume 102 fL (79-100) Mean Corpuscular Hemoglobin 33 pg (25-35) Mean Corpuscular Hemoglobin Concent 32 g/dL (31-37) Red Cell Distribution Width 20.0 % (11.5-14.5) Platelet Count 182 x10^3/uL (140-400) Neutrophils (%) (Auto) 82 % (31-73) Lymphocytes (%) (Auto) 9 % (24-48) Monocytes (%) (Auto) 8 % (0-9) Eosinophils (%) (Auto) 1 % (0-3) Basophils (%) (Auto) 0 % (0-3) Neutrophils # (Auto) 9.4 x10^3uL (1.8-7.7) Lymphocytes # (Auto) 1.0 x10^3/uL (1.0-4.8) Monocytes # (Auto) 0.9 x10^3/uL (0.0-1.1) Eosinophils # (Auto) 0.1 x10^3/uL (0.0-0.7) Basophils # (Auto) 0.0 x10^3/uL (0.0-0.2) Sodium Level 137 mmol/L (136-145) Potassium Level 5.6 mmol/L (3.5-5.1) 5.0 mmol/L (3.5-5.1) Chloride Level 100 mmol/L (98-107) Carbon Dioxide Level 34 mmol/L (21-32) Anion Gap 3 (6-14) Blood Urea Nitrogen 32 mg/dL (7-20) Creatinine 0.9 mg/dL (0.6-1.0) Estimated GFR (Cockcroft-Gault) 59.7 BUN/Creatinine Ratio 36 (6-20) Glucose Level 118 mg/dL (70-99) Calcium Level 9.1 mg/dL (8.5-10.1) Total Bilirubin 0.4 mg/dL (0.2-1.0) Aspartate Amino Transf (AST/SGOT) 30 U/L (15-37) Alanine Aminotransferase (ALT/SGPT) 35 U/L (14-59) Alkaline Phosphatase 66 U/L (46-116) Total Protein 7.7 g/dL (6.4-8.2) Albumin 3.7 g/dL (3.4-5.0) Albumin/Globulin Ratio 0.9 (1.0-1.7) Urine Collection Type Unknown Urine Color Yellow Urine Clarity Cloudy Urine pH 7.0 Urine Specific [place] 1.020 Urine Protein Negative mg/dL (NEG-TRACE) Urine Glucose (UA) Negative mg/dL (NEG) Urine Ketones (Stick) Negative mg/dL (NEG) Urine Blood Trace (NEG) Urine Nitrite Negative (NEG) Urine Bilirubin Negative (NEG) Urine Urobilinogen Dipstick 0.2 mg/dL (0.2 mg/dL) Urine Leukocyte Esterase Large (NEG) Urine RBC 0 /HPF (0-2) Urine WBC Tntc /HPF (0-4) Urine Squamous Epithelial Cells Few /LPF Urine Bacteria Many /HPF (0-FEW) Thyroid Stimulating Hormone (TSH) 27.916 uIU/mL (0.358-3.74) Free Thyroxine 0.50 ng/dL (0.76-1.46) Free Triiodothyronine (T3) pg/mL < 0.50 pg/mL (2.18-3.98) Nasal Screen MRSA (PCR) Negative (Negative) Test 05/19/17 05:10 05/20/17 04:45 White Blood Count 6.9 x10^3/uL (4.0-11.0) 7.6 x10^3/uL (4.0-11.0) Red Blood Count 3.75 x10^6/uL (3.50-5.40) 3.58 x10^6/uL (3.50-5.40) Hemoglobin 12.6 g/dL (12.0-15.5) 11.8 g/dL (12.0-15.5) Hematocrit 37.4 % (36.0-47.0) 36.5 % (36.0-47.0) Mean Corpuscular Volume 100 fL (79-100) 102 fL (79-100) Mean Corpuscular Hemoglobin 34 pg (25-35) 33 pg (25-35) Mean Corpuscular Hemoglobin Concent 34 g/dL (31-37) 32 g/dL (31-37) Red Cell Distribution Width 20.0 % (11.5-14.5) 20.6 % (11.5-14.5) Platelet Count 152 x10^3/uL (140-400) 136 x10^3/uL (140-400) Neutrophils (%) (Auto) 68 % (31-73) 70 % (31-73) Lymphocytes (%) (Auto) 18 % (24-48) 16 % (24-48) Monocytes (%) (Auto) 12 % (0-9) 10 % (0-9) Eosinophils (%) (Auto) 3 % (0-3) 4 % (0-3) Basophils (%) (Auto) 1 % (0-3) 1 % (0-3) Neutrophils # (Auto) 4.7 x10^3uL (1.8-7.7) 5.3 x10^3uL (1.8-7.7) Lymphocytes # (Auto) 1.2 x10^3/uL (1.0-4.8) 1.2 x10^3/uL (1.0-4.8) Monocytes # (Auto) 0.8 x10^3/uL (0.0-1.1) 0.8 x10^3/uL (0.0-1.1) Eosinophils # (Auto) 0.2 x10^3/uL (0.0-0.7) 0.3 x10^3/uL (0.0-0.7) Basophils # (Auto) 0.0 x10^3/uL (0.0-0.2) 0.1 x10^3/uL (0.0-0.2) Platelet Estimate Adequate (ADEQUATE) Large Platelets Few Poikilocytosis Present Anisocytosis Slight Macrocytosis Present Sodium Level 139 mmol/L (136-145) 138 mmol/L (136-145) Potassium Level 4.3 mmol/L (3.5-5.1) 4.7 mmol/L (3.5-5.1) Chloride Level 103 mmol/L (98-107) 103 mmol/L (98-107) Carbon Dioxide Level 32 mmol/L (21-32) 33 mmol/L (21-32) Anion Gap 4 (6-14) 2 (6-14) Blood Urea Nitrogen 21 mg/dL (7-20) 18 mg/dL (7-20) Creatinine 0.6 mg/dL (0.6-1.0) 0.8 mg/dL (0.6-1.0) Estimated GFR (Cockcroft-Gault) 95.2 68.3 BUN/Creatinine Ratio 35 (6-20) Glucose Level 84 mg/dL (70-99) 73 mg/dL (70-99) Calcium Level 8.7 mg/dL (8.5-10.1) 8.1 mg/dL (8.5-10.1) Phosphorus Level 3.4 mg/dL (2.6-4.7) Magnesium Level 2.1 mg/dL (1.8-2.4) Total Bilirubin 0.7 mg/dL (0.2-1.0) Aspartate Amino Transf (AST/SGOT) 20 U/L (15-37) Alanine Aminotransferase (ALT/SGPT) 23 U/L (14-59) Alkaline Phosphatase 43 U/L (46-116) Total Protein 6.5 g/dL (6.4-8.2) Albumin 3.1 g/dL (3.4-5.0) Albumin/Globulin Ratio 0.9 (1.0-1.7) Vitamin B12 Level 689 pg/mL (247-911) Laboratory Tests Test 05/20/17 04:45 White Blood Count 7.6 x10^3/uL (4.0-11.0) Red Blood Count 3.58 x10^6/uL (3.50-5.40) Hemoglobin 11.8 g/dL (12.0-15.5) Hematocrit 36.5 % (36.0-47.0) Mean Corpuscular Volume 102 fL (79-100) Mean Corpuscular Hemoglobin 33 pg (25-35) Mean Corpuscular Hemoglobin Concent 32 g/dL (31-37) Red Cell Distribution Width 20.6 % (11.5-14.5) Platelet Count 136 x10^3/uL (140-400) Neutrophils (%) (Auto) 70 % (31-73) Lymphocytes (%) (Auto) 16 % (24-48) Monocytes (%) (Auto) 10 % (0-9) Eosinophils (%) (Auto) 4 % (0-3) Basophils (%) (Auto) 1 % (0-3) Neutrophils # (Auto) 5.3 x10^3uL (1.8-7.7) Lymphocytes # (Auto) 1.2 x10^3/uL (1.0-4.8) Monocytes # (Auto) 0.8 x10^3/uL (0.0-1.1) Eosinophils # (Auto) 0.3 x10^3/uL (0.0-0.7) Basophils # (Auto) 0.1 x10^3/uL (0.0-0.2) Sodium Level 138 mmol/L (136-145) Potassium Level 4.7 mmol/L (3.5-5.1) Chloride Level 103 mmol/L (98-107) Carbon Dioxide Level 33 mmol/L (21-32) Anion Gap 2 (6-14) Blood Urea Nitrogen 18 mg/dL (7-20) Creatinine 0.8 mg/dL (0.6-1.0) Estimated GFR (Cockcroft-Gault) 68.3 Glucose Level 73 mg/dL (70-99) Calcium Level 8.1 mg/dL (8.5-10.1) Vitamin B12 Level 689 pg/mL (247-911) Microbiology 05/18/17 Urine Culture - Preliminary, Resulted 05/18/17 Urine Culture Result 1 (PATRICIA) - Preliminary, Resulted Medications Current Medications Sodium Chloride 1,000 ml @ 1,000 mls/hr 1X ONCE IV Last administered on 15:53; Start 05/18/17 at 15:30; Stop 05/18/17 at 16:29; Status DC Fentanyl Citrate (Fentanyl 2ml Vial) 25 mcg PRN Q15MIN PRN IV PAIN Last administered on 05/18/17 18:06; Start 05/18/17 at 15:45; Stop 05/18/17 at 18:06 ; Status DC Albuterol/ Ipratropium (Duoneb) 3 ml 1X ONCE NEB Last administered on 16:56; Start 05/18/17 at 17:00; Stop 05/18/17 at 17:01; Status DC Ceftriaxone Sodium 50 ml @ 100 mls/hr 1X ONCE IV Last administered on 18:11; Start 05/18/17 at 18:30; Stop 05/18/17 at 18:59; Status DC Fentanyl Citrate (Fentanyl 2ml Vial) 25 mcg PRN Q1HR PRN IV PAIN; Start at 18:30; Stop 05/19/17 at 18:29; Status DC Ondansetron HCl (Zofran) 4 mg PRN Q6HRS PRN IV NAUSEA/VOMITING; Start 05/18/17 at 18:30 Prochlorperazine Edisylate (Compazine) 10 mg PRN Q6HRS PRN IV NAUSEA/VOMITING; Start 05/18/17 at 18:30 Prochlorperazine (Compazine) 25 mg PRN Q12HR PRN SC NAUSEA/VOMITING; Start 05/18/17 at 18:30 Al Hydroxide/Mg Hydroxide (Mylanta Plus Xs) 30 ml PRN Q3HRS PRN PO HEARTBURN / GAS; Start 05/18/17 at 18:30 Calcium Carbonate/ Glycine (Tums) 500 mg PRN Q3HRS PRN PO UPSET STOMACH; Start 05/18/17 at 18:30 Oxycodone HCl (Roxicodone) 5 mg PRN Q3HRS PRN PO BREAKTHROUGH PAIN; Start 05/18 at 18:30 Morphine Sulfate 1 mg PRN Q1HR PRN IV PAIN Last administered on 05/20/17 11:10 ; Start 05/18/17 at 18:30 Ketorolac Tromethamine (Toradol) 15 mg PRN Q6HRS PRN IV PAIN Last administered on 05/19/17 08:58; Start 05/18/17 at 18:30; Stop 05/23/17 at 18:29 Acetaminophen (Tylenol) 650 mg PRN Q6HRS PRN PO Headaches, Temp > 101.5F; Start 05/18/17 at 18:30 Ibuprofen (Motrin) 400 mg PRN Q6HRS PRN PO MILD PAIN; Start 05/18/17 at 18:30; Stop 05/19/17 at 14:31; Status DC Senna/Docusate Sodium (Senna Plus) 1 tab BID PO Last administered on 05/20/17 11:04; Start 05/18/17 at 21:00 Magnesium Hydroxide (Milk Of Magnesia) 2,400 mg PRN Q12HR PRN PO CONSTIPATION; Start 05/18/17 at 18:30 Enoxaparin Sodium (Lovenox 40mg Syringe) 40 mg Q24H SQ Last administered on 20:36; Start 05/18/17 at 20:00 Sodium Chloride 1,000 ml @ 75 mls/hr 1X ONCE IV Last administered on 19:00; Start 05/18/17 at 19:00; Stop 05/19/17 at 08:19; Status DC Lidocaine (Lidoderm) 1 patch DAILY TD Last administered on 05/20/17 11:12; Start 05/19/17 at 09:00 Divalproex Sodium (Depakote Sprinkles) 125 mg BID PO Last administered on 11:03; Start 05/19/17 at 12:00 Ferrous Sulfate (Feosol) 325 mg DAILYWBKFT PO Last administered on 05/20/17 11 :04; Start 05/19/17 at 12:00 Albuterol/ Ipratropium (Duoneb) 3 ml RTQID NEB Last administered on 05/20/17 11:41; Start 05/19/17 at 12:00 Levothyroxine Sodium (Synthroid) 112 mcg DAILY07 PO Last administered on 06:29; Start 05/20/17 at 07:00 Mirtazapine (Remeron) 7.5 mg QHS PO Last administered on 05/19/17 20:36; Start 05/19/17 at 21:00 Non-Formulary Medication 1 tab QHS PO ; Start 05/19/17 at 21:00; Stop 05/19/17 at 21:00; Status DC Pantoprazole Sodium (Protonix) 40 mg DAILYAC PO Last administered on 05/20/17 06:30; Start 05/19/17 at 12:00 Hydralazine HCl (Apresoline) 10 mg PRN Q4HRS PRN IVP ELEVATED BP, SEE COMMENTS ; Start 05/19/17 at 11:45 Sodium Chloride 1,000 ml @ 50 mls/hr Q20H IV Last administered on 10/5/17at 11 :08; Start 05/19/17 at 13:15 Active Scripts Active Keflex (Cephalexin) 250 Mg Capsule 1 Cap PO TID Reported Seroquel (Quetiapine Fumarate) 25 Mg Tablet 12.5 Mg PO BID Remeron (Mirtazapine) 15 Mg Tablet 0.5 Tab PO QHS Omeprazole 20 Mg Tablet.dr 1 Tab PO DAILY Potassium Chloride 10 Meq Capsule.er 10 Meq PO DAILY Melatonin 3 Mg Tablet 1 Tab PO QHS Levothyroxine Sodium 112 Mcg Tablet 1 Tab PO DAILY 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 Crush per order mix with pudding or applesauce Ferrous Sulfate 325 Mg Tablet 1 Tab PO DAILY Duoneb 0.5-3(2.5) Mg/3 Ml (Albuterol/Ipratropium) 3 Ml Ampul.neb 3 Ml NEB QID Divalproex Sodium 125 Mg Cap.sprink 125 Mg PO BID Vitals/I & O Vital Sign - Last 24 Hours 05/19/17 05/19/17 05/19/17 05/19/17 13:10 15:00 15:40 19:00 Temp 97.9 97.7 97.9 97.7 Pulse 16 72 Resp 16 22 B/P (MAP) 122/78 (93) 114/77 (89) Pulse Ox 97 93 94 O2 Delivery Nasal Cannula Nasal Cannula Nasal Cannula Nasal Cannula O2 Flow Rate 3.0 2.0 3.0 3.0 05/19/17 05/19/17 05/19/17 05/19/17 19:25 19:50 21:31 23:00 Temp 97.9 97.9 Pulse 69 Resp 18 B/P (MAP) 128/69 (88) Pulse Ox 94 93 O2 Delivery Nasal Cannula Nasal Cannula Nasal Cannula Room Air O2 Flow Rate 3.0 3.0 3.0 3.0 05/20/17 05/20/17 05/20/17 05/20/17 02:29 03:00 03:00 06:30 Temp 97.8 97.8 Pulse 64 Resp 21 B/P (MAP) 134/74 (94) Pulse Ox 93 91 91 91 O2 Delivery Nasal Cannula Nasal Cannula Nasal Cannula Nasal Cannula O2 Flow Rate 3.0 3.0 3.0 3.0 05/20/17 05/20/17 05/20/17 05/20/17 07:00 07:30 11:00 11:10 Temp 97.7 98.1 97.7 98.1 Pulse 73 73 Resp 16 16 B/P (MAP) 119/69 (86) 109/45 (66) Pulse Ox 91 91 93 91 O2 Delivery Nasal Cannula Nasal Cannula Nasal Cannula Nasal Cannula O2 Flow Rate 3.0 3.0 3.0 3.0 05/20/17 11:42 Pulse Ox 92 O2 Delivery Nasal Cannula O2 Flow Rate 3.0 Nutrition Consultation Dietary Evaluation: Recommendations by RD: Increase Calorie Intake, Protein supplementation Comments: added boost puddding and magic cup to meals pt needs assist w/ feeding Expected Outcomes/Goals: to meet > 75% est nutr needs Malnutrition Findings: Body Fat Depletion (Non Severe: Mild Depletion Weight Status: Appropriate NEHAL ROTHMAN MD May 20, 2017 12:46
[2017-05-20 15:00] VITALS: BP 122/45
--- NOTE | 2017-05-20 16:23 | PDOC2 ---
PALLIATIVE CARE Palliative Care Note Palliative Care Patient remains alert. Moves all extremities. Confused at time. Spoke with [facility] staff yesterday.; Jhoana saw patient and stated she is at baseline mentally. "Sons are not usually responsive to conversations from [facility]. They have had conversations about Code status and they remain Full Code." Will continue to try to reach family. If no response patient will return to [facility] with same level of care and full code. JIM CROW May 20, 2017 16:23
--- NOTE | 2017-05-20 16:44 | PDOC2 ---
CONSULT Date of Consult Date of Consult DATE: 05/20/17 TIME: 16:30 Reason for Consult Reason for Consult: pelvic fractures Identification/Chief Complaint Chief Complaint none Problems: Source Source: Chart review History of Present Illness Reason for Visit: The patient is an 86 year old female per the chart that resides at a facility. She is unable to provide any history or cooperate with exam. Past Medical History GI: Constipation Psych: Depression Musculoskeletal: Other (chrocni pain vs OA?) Past Surgical History Past Surgical History: Other (unknwon) Family History Family History: Family History Unknown Social History No ALCOHOL: none Drugs: None Current Problem List Problem List Problems Medical Problems: (1) Cervical compression fracture Status: Acute (2) Urinary tract infection Status: Acute Current Medications Current Medications Current Medications Sodium Chloride 1,000 ml @ 1,000 mls/hr 1X ONCE IV Last administered on 15:53; Start 05/18/17 at 15:30; Stop 05/18/17 at 16:29; Status DC Fentanyl Citrate (Fentanyl 2ml Vial) 25 mcg PRN Q15MIN PRN IV PAIN Last administered on 05/18/17 18:06; Start 05/18/17 at 15:45; Stop 05/18/17 at 18:06 ; Status DC Albuterol/ Ipratropium (Duoneb) 3 ml 1X ONCE NEB Last administered on 16:56; Start 05/18/17 at 17:00; Stop 05/18/17 at 17:01; Status DC Ceftriaxone Sodium 50 ml @ 100 mls/hr 1X ONCE IV Last administered on 18:11; Start 05/18/17 at 18:30; Stop 05/18/17 at 18:59; Status DC Fentanyl Citrate (Fentanyl 2ml Vial) 25 mcg PRN Q1HR PRN IV PAIN; Start at 18:30; Stop 05/19/17 at 18:29; Status DC Ondansetron HCl (Zofran) 4 mg PRN Q6HRS PRN IV NAUSEA/VOMITING; Start 05/18/17 at 18:30 Prochlorperazine Edisylate (Compazine) 10 mg PRN Q6HRS PRN IV NAUSEA/VOMITING; Start 05/18/17 at 18:30 Prochlorperazine (Compazine) 25 mg PRN Q12HR PRN RI NAUSEA/VOMITING; Start 05/18/17 at 18:30 Al Hydroxide/Mg Hydroxide (Mylanta Plus Xs) 30 ml PRN Q3HRS PRN PO HEARTBURN / GAS; Start 05/18/17 at 18:30 Calcium Carbonate/ Glycine (Tums) 500 mg PRN Q3HRS PRN PO UPSET STOMACH; Start 05/18/17 at 18:30 Oxycodone HCl (Roxicodone) 5 mg PRN Q3HRS PRN PO BREAKTHROUGH PAIN; Start 05/18 at 18:30 Morphine Sulfate 1 mg PRN Q1HR PRN IV PAIN Last administered on 05/20/17 16:00 ; Start 05/18/17 at 18:30 Ketorolac Tromethamine (Toradol) 15 mg PRN Q6HRS PRN IV PAIN Last administered on 05/19/17 08:58; Start 05/18/17 at 18:30; Stop 05/23/17 at 18:29 Acetaminophen (Tylenol) 650 mg PRN Q6HRS PRN PO Headaches, Temp > 101.5F; Start 05/18/17 at 18:30 Ibuprofen (Motrin) 400 mg PRN Q6HRS PRN PO MILD PAIN; Start 05/18/17 at 18:30; Stop 05/19/17 at 14:31; Status DC Senna/Docusate Sodium (Senna Plus) 1 tab BID PO Last administered on 05/20/17 11:04; Start 05/18/17 at 21:00 Magnesium Hydroxide (Milk Of Magnesia) 2,400 mg PRN Q12HR PRN PO CONSTIPATION; Start 05/18/17 at 18:30 Enoxaparin Sodium (Lovenox 40mg Syringe) 40 mg Q24H SQ Last administered on 20:36; Start 05/18/17 at 20:00 Sodium Chloride 1,000 ml @ 75 mls/hr 1X ONCE IV Last administered on 19:00; Start 05/18/17 at 19:00; Stop 05/19/17 at 08:19; Status DC Lidocaine (Lidoderm) 1 patch DAILY TD Last administered on 05/20/17 11:12; Start 05/19/17 at 09:00 Divalproex Sodium (Depakote Sprinkles) 125 mg BID PO Last administered on 11:03; Start 05/19/17 at 12:00 Ferrous Sulfate (Feosol) 325 mg DAILYWBKFT PO Last administered on 05/20/17 11 :04; Start 05/19/17 at 12:00 Albuterol/ Ipratropium (Duoneb) 3 ml RTQID NEB Last administered on 05/20/17 14:55; Start 05/19/17 at 12:00 Levothyroxine Sodium (Synthroid) 112 mcg DAILY07 PO Last administered on 06:29; Start 05/20/17 at 07:00 Mirtazapine (Remeron) 7.5 mg QHS PO Last administered on 05/19/17 20:36; Start 05/19/17 at 21:00 Non-Formulary Medication 1 tab QHS PO ; Start 05/19/17 at 21:00; Stop 05/19/17 at 21:00; Status DC Pantoprazole Sodium (Protonix) 40 mg DAILYAC PO Last administered on 05/20/17 06:30; Start 05/19/17 at 12:00 Hydralazine HCl (Apresoline) 10 mg PRN Q4HRS PRN IVP ELEVATED BP, SEE COMMENTS ; Start 05/19/17 at 11:45 Sodium Chloride 1,000 ml @ 50 mls/hr Q20H IV Last administered on 05/20/17 11 :08; Start 05/19/17 at 13:15 Active Scripts Active Keflex (Cephalexin) 250 Mg Capsule 1 Cap PO TID Reported Seroquel (Quetiapine Fumarate) 25 Mg Tablet 12.5 Mg PO BID Remeron (Mirtazapine) 15 Mg Tablet 0.5 Tab PO QHS Omeprazole 20 Mg Tablet.dr 1 Tab PO DAILY Potassium Chloride 10 Meq Capsule.er 10 Meq PO DAILY Melatonin 3 Mg Tablet 1 Tab PO QHS Levothyroxine Sodium 112 Mcg Tablet 1 Tab PO DAILY 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 Crush per order mix with pudding or applesauce Ferrous Sulfate 325 Mg Tablet 1 Tab PO DAILY Duoneb 0.5-3(2.5) Mg/3 Ml (Albuterol/Ipratropium) 3 Ml Ampul.neb 3 Ml NEB QID Divalproex Sodium 125 Mg Cap.sprink 125 Mg PO BID Allergies Allergies: Coded Allergies: No Known Drug Allergies (Unverified , 09/03/16) ROS Review of System unable to obtain Physical Exam Physical Exam sitting up in her bed because the head of bed is elevated.in c collar. eyes closed, not arousable. in mitten restraints. cachetic. Vitals VITALS Vital Signs Date Time Temp Pulse Resp B/P (MAP) Pulse Ox O2 Delivery O2 Flow Rate FiO2 05/20/17 16:00 91 Nasal Cannula 3.0 05/20/17 15:00 98.1 85 16 122/45 (70) 98.1 Labs Labs Laboratory Tests Test 05/18/17 17:52 05/18/17 22:30 05/19/17 05:10 05/20/17 04:45 Potassium Level 5.0 mmol/L (3.5-5.1) 4.3 mmol/L (3.5-5.1) 4.7 mmol/L (3.5-5.1) Thyroid Stimulating Hormone (TSH) 27.916 uIU/mL (0.358-3.74) Free Thyroxine 0.50 ng/dL (0.76-1.46) Free Triiodothyronine (T3) pg/mL < 0.50 pg/mL (2.18-3.98) Nasal Screen MRSA (PCR) Negative (Negative) White Blood Count 6.9 x10^3/uL (4.0-11.0) 7.6 x10^3/uL (4.0-11.0) Red Blood Count 3.75 x10^6/uL (3.50-5.40) 3.58 x10^6/uL (3.50-5.40) Hemoglobin 12.6 g/dL (12.0-15.5) 11.8 g/dL (12.0-15.5) Hematocrit 37.4 % (36.0-47.0) 36.5 % (36.0-47.0) Mean Corpuscular Volume 100 fL (79-100) 102 fL (79-100) Mean Corpuscular Hemoglobin 34 pg (25-35) 33 pg (25-35) Mean Corpuscular Hemoglobin Concent 34 g/dL (31-37) 32 g/dL (31-37) Red Cell Distribution Width 20.0 % (11.5-14.5) 20.6 % (11.5-14.5) Platelet Count 152 x10^3/uL (140-400) 136 x10^3/uL (140-400) Neutrophils (%) (Auto) 68 % (31-73) 70 % (31-73) Lymphocytes (%) (Auto) 18 % (24-48) 16 % (24-48) Monocytes (%) (Auto) 12 % (0-9) 10 % (0-9) Eosinophils (%) (Auto) 3 % (0-3) 4 % (0-3) Basophils (%) (Auto) 1 % (0-3) 1 % (0-3) Neutrophils # (Auto) 4.7 x10^3uL (1.8-7.7) 5.3 x10^3uL (1.8-7.7) Lymphocytes # (Auto) 1.2 x10^3/uL (1.0-4.8) 1.2 x10^3/uL (1.0-4.8) Monocytes # (Auto) 0.8 x10^3/uL (0.0-1.1) 0.8 x10^3/uL (0.0-1.1) Eosinophils # (Auto) 0.2 x10^3/uL (0.0-0.7) 0.3 x10^3/uL (0.0-0.7) Basophils # (Auto) 0.0 x10^3/uL (0.0-0.2) 0.1 x10^3/uL (0.0-0.2) Platelet Estimate Adequate (ADEQUATE) Large Platelets Few Poikilocytosis Present Anisocytosis Slight Macrocytosis Present Sodium Level 139 mmol/L (136-145) 138 mmol/L (136-145) Chloride Level 103 mmol/L (98-107) 103 mmol/L (98-107) Carbon Dioxide Level 32 mmol/L (21-32) 33 mmol/L (21-32) Anion Gap 4 (6-14) 2 (6-14) Blood Urea Nitrogen 21 mg/dL (7-20) 18 mg/dL (7-20) Creatinine 0.6 mg/dL (0.6-1.0) 0.8 mg/dL (0.6-1.0) Estimated GFR (Cockcroft-Gault) 95.2 68.3 BUN/Creatinine Ratio 35 (6-20) Glucose Level 84 mg/dL (70-99) 73 mg/dL (70-99) Calcium Level 8.7 mg/dL (8.5-10.1) 8.1 mg/dL (8.5-10.1) Phosphorus Level 3.4 mg/dL (2.6-4.7) Magnesium Level 2.1 mg/dL (1.8-2.4) Total Bilirubin 0.7 mg/dL (0.2-1.0) Aspartate Amino Transf (AST/SGOT) 20 U/L (15-37) Alanine Aminotransferase (ALT/SGPT) 23 U/L (14-59) Alkaline Phosphatase 43 U/L (46-116) Total Protein 6.5 g/dL (6.4-8.2) Albumin 3.1 g/dL (3.4-5.0) Albumin/Globulin Ratio 0.9 (1.0-1.7) Vitamin B12 Level 689 pg/mL (247-911) Laboratory Tests Test 05/20/17 04:45 White Blood Count 7.6 x10^3/uL (4.0-11.0) Red Blood Count 3.58 x10^6/uL (3.50-5.40) Hemoglobin 11.8 g/dL (12.0-15.5) Hematocrit 36.5 % (36.0-47.0) Mean Corpuscular Volume 102 fL (79-100) Mean Corpuscular Hemoglobin 33 pg (25-35) Mean Corpuscular Hemoglobin Concent 32 g/dL (31-37) Red Cell Distribution Width 20.6 % (11.5-14.5) Platelet Count 136 x10^3/uL (140-400) Neutrophils (%) (Auto) 70 % (31-73) Lymphocytes (%) (Auto) 16 % (24-48) Monocytes (%) (Auto) 10 % (0-9) Eosinophils (%) (Auto) 4 % (0-3) Basophils (%) (Auto) 1 % (0-3) Neutrophils # (Auto) 5.3 x10^3uL (1.8-7.7) Lymphocytes # (Auto) 1.2 x10^3/uL (1.0-4.8) Monocytes # (Auto) 0.8 x10^3/uL (0.0-1.1) Eosinophils # (Auto) 0.3 x10^3/uL (0.0-0.7) Basophils # (Auto) 0.1 x10^3/uL (0.0-0.2) Sodium Level 138 mmol/L (136-145) Potassium Level 4.7 mmol/L (3.5-5.1) Chloride Level 103 mmol/L (98-107) Carbon Dioxide Level 33 mmol/L (21-32) Anion Gap 2 (6-14) Blood Urea Nitrogen 18 mg/dL (7-20) Creatinine 0.8 mg/dL (0.6-1.0) Estimated GFR (Cockcroft-Gault) 68.3 Glucose Level 73 mg/dL (70-99) Calcium Level 8.1 mg/dL (8.5-10.1) Vitamin B12 Level 689 pg/mL (247-911) Images Images xrays of the pelvis and ct scan reveal multiple pelvic fractures in various stages of healing. Assessment/Plan Assessment/Plan The patient is an 86 year old female who is in the hospital with multiple medical problems. Currently she is a full code, and palliative care has been consulted. from a pelvis standpoint she can be weight bearing as tolerated and work with physical therapy/ot as tolerated. she can follow-up with her primary care doctor regarding her bone health, which she needs treated for these fractures to heal. Thank you for allowing me to participate in the care of this patient. SUKHJINDER GARCIA MD May 20, 2017 16:44
--- NOTE | 2017-05-20 17:14 | RAD ---
Portable abdomen, 05/20/2017: History: Ileus There is a moderate amount of gas and stool scattered throughout the colon extending down to the rectum. No small bowel dilatation is evident. No organomegaly is seen. Extensive aortoiliac calcific plaquing is present. The bony structures are demineralized. 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
[2017-05-20] MEDS: MAG HYDROX/ALUMINUM HYD/SIMETH 30 ML ORAL.SUSP PO PRN (18:52)
[2017-05-20] MEDS: MAGNESIUM HYDROXIDE 2,400 MG/30 ML ORAL.SUSP. PO PRN (18:52)
[2017-05-20 19:00] VITALS: BP 110/73
[2017-05-20] MEDS: MIRTAZAPINE 15 MG TABLET PO SCH (20:23)
[2017-05-20] MEDS: ENOXAPARIN 40 MG/0.4 ML SYRINGE. SQ SCH (20:23)
[2017-05-20] MEDS: DOCUSATE SODIUM 100 MG CAPSULE. PO SCH (20:23)
[2017-05-20 23:00] VITALS: BP 136/76
[2017-05-21 03:00] VITALS: BP 90/54
[2017-05-21] MEDS: IV NORMAL SALINE 1000ML BAG 1,000 ML IV SCH (06:02)
[2017-05-21] MEDS: LEVOTHYROXINE 112 MCG TABLET PO SCH (06:06)
[2017-05-21 07:00] VITALS: BP 148/48
[2017-05-21] MEDS: IPRATRPIUM/ALBUTEROL 0.5/2.5MG 3 ML NEBU. NEB SCH ×3 (07:42→15:24)
[2017-05-21] MEDS: SENNOSIDES/DOCUSATE 8.6/50MG TABLET. PO SCH (08:16)
[2017-05-21] MEDS: FERROUS SULFATE 325 MG TABLET. PO SCH (08:16)
[2017-05-21] MEDS: MAG HYDROX/ALUMINUM HYD/SIMETH 30 ML ORAL.SUSP PO PRN (08:16)
[2017-05-21] MEDS: DIVALPROEX SPRINKLES 125 MG CAPSULE. PO SCH (08:16)
[2017-05-21] MEDS: DOCUSATE SODIUM 100 MG CAPSULE. PO SCH (08:16)
[2017-05-21] MEDS: MAGNESIUM HYDROXIDE 2,400 MG/30 ML ORAL.SUSP. PO PRN (08:16)
[2017-05-21] MEDS: PANTOPRAZOLE 40 MG TABLET.DR. PO SCH (08:17)
[2017-05-21] MEDS: LIDOCAINE (700MG/PATCH) PATCH. TD SCH (08:17)
[2017-05-21] MEDS: MORPHINE SULFATE 4 MG/ML DISP.SYRIN. IV PRN ×2 (08:43→12:53)
--- NOTE | 2017-05-21 09:10 | PDOC2 ---
GI CONSULT Reason For Consult: Atonic colon, ileus HPI: HPI: 86 y/o female admitted 05/18 after fall at living facility, has cervical compression fracture and pelvic fractures. H/o dysphagia, had [employer] eval, tolerating dysphagia diet w/ help from staff. No BM since admission, noted to have some abd distention, KUB yesterday suggested atonic colon or mild ileus, hence GI consult. Has Colace, MoM, Senna, Pantoprazole, Mylanta. Denies pain, otherwise unhelpful historian. RN at bedside helps. PMH: PMH: per chart - dysphagia, constipation, hypothyroidism, depression, chronic pain, pelvic fractures, compression fractures FH: Family History: No pertinent hx Social History: Smoke: No ALCOHOL: none Drugs: None ROS: Difficult historian, denies pain. Vitals: Vitals: Vital Signs Date Time Temp Pulse Resp B/P (MAP) Pulse Ox O2 Delivery O2 Flow Rate FiO2 05/21/17 07:45 Nasal Cannula 3.0 05/21/17 03:00 98.1 63 18 90/54 (66) 90 98.1 Labs: Labs: Please see EMR. Allergies: Coded Allergies: No Known Drug Allergies (Unverified , 09/03/16) Medications: Current Medications Medications (Trade) Dose Ordered Sig/Kathie Route PRN Reason Start Time Stop Time Status Last Admin Dose Admin Docusate Sodium (Colace) 100 mg BID PO 05/20/17 21:00 05/21/17 08:16 Imaging: Imaging: Hip/Pelvis X-Ray IMPRESSION: 1. Possible fractures of the bilateral pubic rami, age indeterminate, although evaluation is limited due to osteopenia. CT pelvis could be obtained for further evaluation is indicated. 2. Nonspecific periosteal reaction in the proximal third of the femoral diaphysis. 3. Moderate bilateral hip, bilateral SI joint, and pubic symphysis arthrosis. Head, C-Spine CT Impression: 1. Area of attenuation within the right frontal lobe likely infarct, age indeterminate likely subacute to chronic. Correlate with history of prior CVA. If concern for acute ischemic stroke is high, please consider MRI. 2. White matter changes secondary to chronic ischemic small vessel disease. 3. Small area of low attenuation adjacent right caudate nucleus likely lacunar Infarct, age indeterminate. 4. Linear lucency through the occipital bone may represent nondisplaced fracture or vascular channel. There is no scalp hematoma or intracranial acute bleed. Impression: 1. New compression deformity of C7 vertebral body when compared to previous study from 07/17/2016 with no retropulsion spinal canal. 2. Stable multiple compression deformities of the upper thoracic spine. Diffuse osteopenia. 3. Lucency through the right aspect of the occipital bone may represent nondisplaced fracture or vascular channel. There are no scalp hematoma or intracranial acute bleed. CXR IMPRESSION: 1. Patchy bilateral heterogenous air space opacities may relate to pulmonary edema or an infectious process. Recommend continued radiographic follow-up to resolution. 2. Small bilateral pleural effusions. 3. Mild cardiomegaly. 4. Widening of the superior mediastinum. This could be accentuated to patient rotation and portable technique. PA and lateral chest radiograph with better inspiration could be obtained. If there is any concern for vascular injury, recommend CTA chest. Pelvis CT IMPRESSION: 1. Bilateral fractures the sacral nilton are of uncertain age and could be subacute insufficiency fractures. 2. Acute minimally displaced comminuted fracture of the right iliac. 3. Acute fractures of the inferior and superior pubic rami on the right including the anterior column of the right hip. 4. Old fractures of the superior and inferior pubic rami bilaterally. 5. L4 and L5 vertebral body compression fractures of uncertain age. KUB IMPRESSION: Moderate amount of gas and stool throughout the colon suggesting an atonic colon or mild ileus. [employer] Bedside Swallow Eval Bedside swallow eval completed. Pt limited trials of soft solid. No overt s/s aspiration w/puree or honey thick liquid trials. Phonation change and subtle throat clearing noted p.ice chip trial. IMPRESSION: Current diet appears appropriate. S/s w/ice chip, therefore would not advance liquids. May be able to advance solids if pt is willing to take more trials so that solids can be more thoroughly evaluated. Anticipate that intake may fall below needs d/t pt preferences, and potentially other factors. RECOMMENDATIONS: Con't dysphagia II diet w/honey thick liquids. Precautions posted. Will f/u 1-2 sessions. PE: GEN: NAD HEENT: C-collar LUNGS: clear HEART: RRR ABD: NABS, distended, a bit tight, non-tender EXTREMITY: No edema SKIN: No rashes, no jaundice NEURO/PSYCH: confused ("What do you want? I've been waiting all day for you.") A/P: A/P: Abnormal KUB -suggestive of atonic colon or ileus -seem h/o constipation, no BM since admission 05/18 -denies pain Dysphagia -saw [employer], tolerating dysphagia diet w/ help Compression fractures, pelvic fractures Hypothyroidism -- Add Amitiza, await response. CHERRY MORRISON May 21, 2017 09:09
[2017-05-21] MEDS ORDERED: POLYETHYLENE GLYCOL 3350 17 GM PACKET. PO PRN (09:15)
[2017-05-21] MEDS ORDERED: LUBIPROSTONE 8 MCG CAPSULE PO SCH (09:30)
[2017-05-21] MEDS ORDERED: DOCU-109 PO (10:51)
[2017-05-21] MEDS ORDERED: LUBI8CAP4 PO (10:51)
[2017-05-21] MEDS ORDERED: SENN-22 PO (10:51)
[2017-05-21] MEDS ORDERED: LIDO700A39 TD (10:51)
[2017-05-21 11:00] VITALS: BP 126/72
--- NOTE | 2017-05-21 11:07 | PDOC2 ---
PALLIATIVE CARE Palliative Care Note Palliative Care Patient resting comfortably. Did not disturb. Spoke with Ric EVANS. Reviewed current medical condition. He was aware of hospitalization and fractures but "did not know that it was that bad" States patient has been declining over the last several months. Reviewed results of Swallow Evaluation and imaging. Discussed Code Status: He will have to discuss with his siblings. Offered family meeting but declined. Patient has always been active and independent. Understands that she likely will not get back to the level she was. Discussed possibility of weakness becoming more severe. Ric will discuss Code Status and comfort care with his sibling. Plan Return to [facility] with continued discussion of Code Status and comfort care. JIM CROW May 21, 2017 11:07
--- NOTE | 2017-05-21 14:19 | PDOC3 ---
Discharge Summary [facility] Date of Admission: May 18, 2017 Discharge Date: May 21, 2017 Admitting Diagnosis FAll in SNU traumatic acute new C7 fx multiple chronic pelvic fx and new pelvic fx from all Stable multiple compression fx thoracic spine and lumbar spine severe dementia DYsphagia on mechanical soft diet Geriatric, high fall risk, high asp risk . 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 - on narcs in SNU Hyperkalemia likely of dehydration urinary retention distended abd with mild ileus or atonic colon Problems: Final Diagnosis CONSULTS neuro sx dr. [facility] Hospital Course Ms. Mancilla is a 86 old was sent from SNF, severe dementia, aaox0, agitated sometimes, passed swallow on dysphagia 2 diet, was sent post fall. She supposed to walk with assitance, but she walked with a walker herself and then fell. was found new c7 compressive fx, new right pelvis fx , and other old stable pelvis fx and thoracic and lumbar spine fx. neurosx consulted, keep soft cervical collar wo sx. ortho consulted, no sx for pelvic fx. PAT consulted, however, hard to get DPOA her son who usually dosenot talk to SNF too, family cannot decide DNR or hospice. pt still FC. dc back to SNF, cont perales for urinary retention, SHOULD BE dnr and hospice. tsh very high, likely not taking her synthorid at home. also has distended abd , XR showed mild ileus or atonic colon, GI consulted, add stool softner. dc time 40min Physical Exam aox0, neck collar, asked ":to leave me alone" , c/o back pain General: Alert, No acute distress, Other (does not answer to qs but is awake and not in distress) Heart: Regular rate, Normal S1, Normal S2 Lungs: Clear Abdomen: Normal bowel sounds, Soft, No tenderness, No hepatosplenomegaly, No masses . distended abd. Extremities: No clubbing, No cyanosis, No edema, Normal pulses, No tenderness/ swelling, Other (minimal subQ tissue) Skin: No rashes, No breakdown, No significant lesion Problems: Disposition snf home CONDITION AT DISCHARGE: Improved Diet dysphagia 2 Scheduled Divalproex Sodium (Divalproex Sodium), 125 MG PO BID, (Reported) Docusate Sodium (Colace), 100 MG PO BID Ferrous Sulfate (Ferrous Sulfate), 1 TAB PO DAILY, (Reported) Ipratropium/Albuterol Sulfate (Duoneb 0.5-3(2.5) Mg/3 Ml), 3 ML NEB QID, ( Reported) Levothyroxine Sodium (Levothyroxine Sodium), 1 TAB PO DAILY, (Reported) Lidocaine (Lidocaine), 1 PATCH TD DAILY Lubiprostone (Amitiza), 8 MCG PO BIDWMEALS Melatonin (Melatonin), 1 TAB PO QHS, (Reported) Mirtazapine (Remeron), 0.5 TAB PO QHS, (Reported) Omeprazole (Omeprazole), 1 TAB PO DAILY, (Reported) Quetiapine Fumarate (Seroquel), 12.5 MG PO BID, (Reported) Sennosides/Docusate Sodium (Senna-Time S Tablet), 1 TAB PO BID Discontinued Medications Cephalexin (Keflex), 1 CAP PO TID Potassium Chloride (Potassium Chloride), 10 MEQ PO DAILY, (Reported) Follow Up pcp in 2 weeks NEHAL ROTHMAN MD May 21, 2017 14:19
[2017-05-21 15:00] VITALS: BP 125/69
== END 2017-05-21 16:40 | DRG 551 ==
LOC: ER 15:13 → 4 NORTH 18:18
PROVIDERS: ADMIT Internal Medicine; ATTEND Internal Medicine
DX: S12.600A Unspecified displaced fracture of seventh cervical vertebra, initial encounter for closed fracture (principal); E43 Unspecified severe protein-calorie malnutrition; J81.1 Chronic pulmonary edema; E87.5 Hyperkalemia; F03.90 Unspecified dementia, unspecified severity, without behavioral disturbance, psychotic disturbance, mood disturbance, and anxiety; I11.9 Hypertensive heart disease without heart failure; N39.0 Urinary tract infection, site not specified; R13.10 Dysphagia, unspecified; E86.0 Dehydration; M48.54XA Collapsed vertebra, not elsewhere classified, thoracic region, initial encounter for fracture; W18.30XA Fall on same level, unspecified, initial encounter; E03.9 Hypothyroidism, unspecified; F32.9 Major depressive disorder, single episode, unspecified; Z51.5 Encounter for palliative care; G89.29 Other chronic pain; I73.9 Peripheral vascular disease, unspecified; K21.9 Gastro-esophageal reflux disease without esophagitis; M19.90 Unspecified osteoarthritis, unspecified site; M85.80 Other specified disorders of bone density and structure, unspecified site; R47.02 Dysphasia; F41.9 Anxiety disorder, unspecified; M43.8X2 Other specified deforming dorsopathies, cervical region; Z86.73 Personal history of transient ischemic attack (TIA), and cerebral infarction without residual deficits; Y93.89 Activity, other specified; Y99.8 Other external cause status; Y92.128 Other place in nursing home as the place of occurrence of the external cause; Z68.22 Body mass index [BMI] 22.0-22.9, adult
CPT/HCPCS: 36415; 51701; 70450; 71010; 72125; 72192; 73502; 74000; 80048; 80053; 81001; 82607; 83735; 84100; 84132; 84439; 84443; 84481; 85025; 87086; 87186; 87641; 93005; 94640; 94760; 96374; 96375; 96376; J0690; J1650; J1885; J2270; J3010; J7030; J7620; 92526; 92610; 99285-25

== ENCOUNTER 2017-12-06 18:53 | Inpatient (IN) | payer MEDICARE ==
[2017-12-06 19:39] LABS: BASO % 0 % (0-3); EOS % 0 % (0-3); LYMPH # 1.1 x10^3/uL (1.0-4.8); LYMPH % 5 % (24-48); MEAN CORPUSCULAR HEMOGLOBIN 33 pg (25-35); MEAN CORPUSCULAR HGB CONC 33 g/dL (31-37); MEAN CORPUSCULAR VOLUME 100 fL (79-100); MONO # 0.7 x10^3/uL (0.0-1.1); MONO % 3 % (0-9); NEUT # 19.1 x10^3uL (1.8-7.7); NEUT % 91 % (31-73); PLATELET COUNT 202 x10^3/uL (140-400); RED BLOOD COUNT 4.61 x10^6/uL (3.50-5.40); RED CELL DISTRIBUTION WIDTH 22.5 % (11.5-14.5)
[2017-12-06 19:40] LABS: ADD MAN DIFF? YES
[2017-12-06 19:54] LABS: LACTIC ACID 1.9 mmol/L (0.4-2.0)
[2017-12-06] MEDS: IV NORMAL SALINE 1000ML BAG 1,000 ML IV ×2 (20:04→22:05)
[2017-12-06 20:18] LABS: % BANDS 37 % (0-9); % LYMPHS 9 % (24-48); % MONOS 1 % (0-10); % SEGS 53 % (35-66)
[2017-12-06 20:20] LABS: ANISOCYTOSIS MOD; PLT ESTIMATE ADEQUATE (ADEQUATE); TOXIC GRANULATION MOD; TOXIC VACUOLATION SLIGHT
[2017-12-06 20:33] LABS: BASE EXCESS ABG 4 mmol/L (-3-3); HCO3 ABG 30 mmol/L (21-28); PCO2 ABG 54 mmHg (35-46); PH ABG 7.36 (7.35-7.45); PO2 ABG 107 mmHg (65-108); SAT O2 ABG 97 % (92-99)
[2017-12-06 20:39] LABS: BILIRUBIN,URINE SMALL (NEG); GLUCOSE,URINE NEGATIVE (NEG); NITRITE,URINE NEGATIVE (NEG); PH,URINE 5.5; PROTEIN,URINE 30 mg/dL (NEG-TRACE)
[2017-12-06] MEDS: PIPERACILLIN/TAZOBACTAM 3.375 GM in IV NORMAL SALINE 50ML 50 ML IV (20:41)
[2017-12-06] MEDS: VANCOMYCIN 1GM IVPB FOR OMNI 250 ML IV (20:41)
[2017-12-06 20:53] LABS: BACTERIA,URINE MANY /HPF (0-FEW); CLARITY,URINE CLEAR; COLOR,URINE DK YELLOW; HYALINE CASTS, URINE MODERATE /HPF; RBC,URINE RARE /HPF (0-2); SQUAMOUS EPITHELIAL CELL,UR FEW /LPF
[2017-12-06] MEDS ORDERED: ONDANSETRON PF 4 MG/2 ML VIAL. IV (21:30)
[2017-12-06] MEDS ORDERED: MORPHINE SULFATE 2 MG/ML DISP.SYRIN. IV (21:30)
[2017-12-06] MEDS ORDERED: MORPHINE SULFATE 4 MG/ML DISP.SYRIN. IV (21:30)
[2017-12-06 21:38] LABS: ALBUMIN 2.6 g/dL (3.4-5.0); ALBUMIN/GLOBULIN RATIO 0.7 (1.0-1.7); ALK PHOS 56 U/L (46-116); ALT (SGPT) 21 U/L (14-59); ANION GAP 7 (6-14); AST (SGOT) 25 U/L (15-37); BLOOD UREA NITROGEN 51 mg/dL (7-20); BUN/CREATININE RATIO 43 (6-20); CALCIUM 8.5 mg/dL (8.5-10.1); CARBON DIOXIDE 32 mmol/L (21-32); CHLORIDE 122 mmol/L (98-107); CREATININE 1.2 mg/dL (0.6-1.0); GFR 42.7; GLUCOSE 202 mg/dL (70-99); POTASSIUM 3.4 mmol/L (3.5-5.1); TOTAL BILIRUBIN 0.6 mg/dL (0.2-1.0); TOTAL PROTEIN 6.6 g/dL (6.4-8.2)
[2017-12-06 21:46] LABS: TROPONINI < 0.017 ng/mL (0.000-0.055)
[2017-12-06 21:47] LABS: SODIUM 161 mmol/L (136-145)
[2017-12-06] MEDS: IV NORMAL SALINE 500ML BAG 500 ML IV (22:15)
[2017-12-07] MEDS: IV DEXTROSE 5% 1,000 ML IV (03:03)
[2017-12-07 05:40] LABS: ADD MAN DIFF? NO
[2017-12-07 05:46] LABS: BASO % 0 % (0-3); EOS % 0 % (0-3); HEMOGLOBIN 12.5 g/dL (12.0-15.5); LYMPH # 0.8 x10^3/uL (1.0-4.8); LYMPH % 4 % (24-48); MEAN CORPUSCULAR HEMOGLOBIN 32 pg (25-35); MEAN CORPUSCULAR HGB CONC 31 g/dL (31-37); MEAN CORPUSCULAR VOLUME 102 fL (79-100); MONO # 0.9 x10^3/uL (0.0-1.1); MONO % 5 % (0-9); NEUT % 91 % (31-73); PLATELET COUNT 151 x10^3/uL (140-400); RED BLOOD COUNT 3.93 x10^6/uL (3.50-5.40); RED CELL DISTRIBUTION WIDTH 22.1 % (11.5-14.5); WHITE BLOOD COUNT 18.8 x10^3/uL (4.0-11.0)
[2017-12-07 06:15] LABS: ALBUMIN 2.6 g/dL (3.4-5.0); ALBUMIN/GLOBULIN RATIO 0.7 (1.0-1.7); ALK PHOS 68 U/L (46-116); ALT (SGPT) 23 U/L (14-59); ANION GAP 4 (6-14); AST (SGOT) 34 U/L (15-37); BLOOD UREA NITROGEN 43 mg/dL (7-20); BUN/CREATININE RATIO 39 (6-20); CALCIUM 8.5 mg/dL (8.5-10.1); CARBON DIOXIDE 33 mmol/L (21-32); CHLORIDE 122 mmol/L (98-107); CREATININE 1.1 mg/dL (0.6-1.0); GFR 47.2; GLUCOSE 145 mg/dL (70-99); SODIUM 159 mmol/L (136-145); TOTAL BILIRUBIN 0.5 mg/dL (0.2-1.0); TOTAL PROTEIN 6.6 g/dL (6.4-8.2)
[2017-12-07] MEDS: IV 1/2 NORMAL SALINE 1,000 ML IV ×2 (13:10→23:01)
[2017-12-07] MEDS: POTASSIUM CHLORIDE 20 MEQ in IV DEXTROSE 5 %-0.2 % NACL 250 ML IV (13:11)
[2017-12-07] MEDS: cefTRIAXone IV Push 1 GM VIAL. IVP (13:24)
[2017-12-07 23:13] LABS: MRSA BY PCR Negative (Negative)
[2017-12-08 05:39] LABS: ADD MAN DIFF? NO
[2017-12-08 06:00] LABS: BASO # 0.1 x10^3/uL (0.0-0.2); BASO % 1 % (0-3); EOS % 0 % (0-3); HEMATOCRIT 38.8 % (36.0-47.0); HEMOGLOBIN 12.1 g/dL (12.0-15.5); LYMPH # 0.9 x10^3/uL (1.0-4.8); LYMPH % 7 % (24-48); MEAN CORPUSCULAR HEMOGLOBIN 32 pg (25-35); MEAN CORPUSCULAR HGB CONC 31 g/dL (31-37); MEAN CORPUSCULAR VOLUME 102 fL (79-100); MONO # 0.8 x10^3/uL (0.0-1.1); MONO % 6 % (0-9); NEUT # 11.7 x10^3uL (1.8-7.7); NEUT % 87 % (31-73); PLATELET COUNT 124 x10^3/uL (140-400); RED CELL DISTRIBUTION WIDTH 22.3 % (11.5-14.5); WHITE BLOOD COUNT 13.4 x10^3/uL (4.0-11.0)
[2017-12-08 06:44] LABS: ANION GAP 9 (6-14); BLOOD UREA NITROGEN 45 mg/dL (7-20); CALCIUM 7.5 mg/dL (8.5-10.1); CARBON DIOXIDE 28 mmol/L (21-32); CHLORIDE 118 mmol/L (98-107); CREATININE 1.4 mg/dL (0.6-1.0); GFR 35.7; GLUCOSE 81 mg/dL (70-99); POTASSIUM 3.7 mmol/L (3.5-5.1); SODIUM 155 mmol/L (136-145)
[2017-12-08] MEDS: IV 1/2 NORMAL SALINE 1,000 ML IV (08:38)
[2017-12-08] MEDS: cefTRIAXone IV Push 1 GM VIAL. IVP (12:29)
[2017-12-08] MEDS ORDERED: IV 1/2 NORMAL SALINE 1,000 ML IV (13:45)
[2017-12-08] MEDS ORDERED: MORPHINE SULFATE 2 MG/ML DISP.SYRIN. IV (16:45)
[2017-12-08] MEDS: MORPHINE SULFATE 4 MG/ML DISP.SYRIN. IV ×2 (18:04→23:02)
[2017-12-09] MEDS: MORPHINE SULFATE 4 MG/ML DISP.SYRIN. IV ×4 (03:36→12:39)
[2017-12-09] MEDS: cefTRIAXone IV Push 1 GM VIAL. IVP (12:35)
== END 2017-12-09 16:25 | DRG 871 ==
LOC: ED HOLD 21:30 → 6 SOUTH 12-08 14:30 → 1 WEST ICU 12-07 02:43 → ER 18:53
PROVIDERS: Internal Medicine
DX: A41.9 Sepsis, unspecified organism (principal); J96.01 Acute respiratory failure with hypoxia; E87.0 Hyperosmolality and hypernatremia; J18.9 Pneumonia, unspecified organism; F41.9 Anxiety disorder, unspecified; Z66 Do not resuscitate; K21.9 Gastro-esophageal reflux disease without esophagitis; F03.90 Unspecified dementia, unspecified severity, without behavioral disturbance, psychotic disturbance, mood disturbance, and anxiety; E03.9 Hypothyroidism, unspecified; I10 Essential (primary) hypertension; Z51.5 Encounter for palliative care; Z86.73 Personal history of transient ischemic attack (TIA), and cerebral infarction without residual deficits; Z82.49 Family history of ischemic heart disease and other diseases of the circulatory system
CPT/HCPCS: 36415; 36600; 51702; 71045; 80048; 80053; 81001; 82805; 83605; 84484; 85007; 85025; 87040; 87086; 87641; 93005; 96361; 96365; 96368; 99291-25; J0696; J2270; J2543; J3370; J7030; J7040

== ENCOUNTER 2017-12-09 17:33 | Emergency (ER) | payer MEDICARE | END 2017-12-09 20:48 | disposition E | LOC: ER 17:33 | DX: I46.9 Cardiac arrest, cause unspecified (principal); K21.9 Gastro-esophageal reflux disease without esophagitis; I10 Essential (primary) hypertension; E87.1 Hypo-osmolality and hyponatremia; E03.9 Hypothyroidism, unspecified; Z86.73 Personal history of transient ischemic attack (TIA), and cerebral infarction without residual deficits; F03.90 Unspecified dementia, unspecified severity, without behavioral disturbance, psychotic disturbance, mood disturbance, and anxiety | CPT/HCPCS: 99285; 99285-25 ==